=== PATIENT | male | born 1960 | race Caucasian/White ===

== ENCOUNTER 2022-10-01 01:08 | Day surgery (SDC) | payer BC, SELFPAY ==
[2022-09-18 12:48] VITALS: BMI 42.6
[2022-10-01 06:49] VITALS: BP 116/79; PULSE 85; RESP 18; TEMP 36.1; O2SAT 96; BMI 41.3
[2022-10-01] MEDS: LACTATED RINGERS 1,000 ML 150 ML IV CONT (07:04)
[2022-10-01 07:11] LABS: Glucose Point of Care 166 mg/dl (65-105)
--- NOTE | 2022-10-01 07:48 | WPDANESEPPF ---
Anes - Initial Pre Proc Eval Procedure: Operation Date: 10/01/22 08:00 Proposed Procedures p Screening Colonoscopy - Royce Rosario MD Date/Time: 10/01/22 07:48 Surgeon: Royce Rosario MD Pre Op Diagnosis: neoplasm screening; hx of colon polyps Patient Data Age: 62 Gender: M Height: 1.75 m Weight: 126.8 kg Last Vital Signs Temp 36.1 C L 10/01/22 06:49 Pulse 85 10/01/22 06:49 Resp 18 10/01/22 06:49 BP 116/79 10/01/22 06:49 Pulse Ox 96 10/01/22 06:49 O2 Del Method Room Air 10/01/22 06:49 Allergies Allergy/AdvReac Type Severity Reaction Status Date / Time latex Allergy Unknown rash Verified 10/01/22 06:48 Home Medications Medication Instructions Recorded Confirmed Type metformin 500 mg tablet,extended 1,000 mg PO BID #360 tabs 04/18/22 09/18/22 Rx release 24hr dapagliflozin 5 mg tablet (Farxiga) 5 mg PO DAILY #90 tabs 05/15/22 09/18/22 Rx cyanocobalamin (vitamin B-12) 1,000 mcg PO DAILY 06/26/22 09/18/22 History 1,000 mcg tablet semaglutide 14 mg tablet (Rybelsus) 14 mg PO DAILY #90 tabs 08/11/22 09/18/22 Rx amlodipine 5 mg tablet 5 mg PO DAILY #90 tabs 08/15/22 09/18/22 Rx tamsulosin 0.4 mg capsule 0.4 mg PO DAILY #90 caps 08/15/22 09/18/22 Rx valsartan 320 mg tablet 320 mg PO DAILY #90 tabs 08/15/22 09/18/22 Rx cholecalciferol (vitamin D3) 50 2,000 unit PO DAILY 08/20/22 09/18/22 History mcg (2,000 unit) capsule Laboratory Tests 10/01/22 07:05 POC Capillary Glucose 166 mg/dl H mg/dl (65-105) Patient hx anesthesia problems: none Family hx anesthesia problems: none Results Review: All pre-operative results and documents have been reviewed as part of the pre-operative evaluation. [facility] Past Medical History Medical History (Updated 10/01/22 @ 07:48 by Devendra Subramanian MD) Body mass index (BMI) 45.0-49.9, adult (04/19/19) BPH without obstruction/lower urinary tract symptoms Colon polyp (09/20/19) Multiple polyps on colonoscopy with Dr. Larsen on 09/20/2019 with recheck in 3 years. Cough Elevated liver enzymes Encounter for prostate cancer screening PSA 0.57 on 07/05/2021. PSA 0.7 on 08/18/2022. Essential (primary) hypertension Foreign body in right ear Fungal nail infection (~08/20/22) 1st and 5th toes bilaterally Mixed hyperlipidemia total cholesterol 204, triglycerides 418 and HDL 27 on 07/05/2021. Total cholesterol 194, triglycerides 332, HDL 32, LDL 105 on 08/18/2022. Morbid obesity with BMI of 40.0-44.9, adult Obstructive sleep apnea Rib pain on left side Social History Social History Smoking packs per day: 3 Smoking cigarettes per day: 60.0 Years smoked: 20 Smoking pack-years: 60.00 Smoking status: Former smoker Tobacco type: cigarettes Alcohol intake: current Drinks per week: 2 Alcohol use details: occasional Substance use: current Substance use type: marijuana Living arrangements: with family Gender identity (if verbalized by the patient): Male Spiritual care concerns: No Anes - Eval Final PreProcedure Day of Procedure 10/01/22 07:48 Patient weight: morbidly obese Heart: regular rate and rhythm Lungs: clear to auscultation Airway: Mallampati scale class III Neurological: alert and oriented Last oral intake: >/= 8 hours ASA classification: III Emergent: no Anesthetic plan: proceed Anesthesia type and monitoring: general GIVS and standard monitoring Results Review: All pre-operative results and documents have been reviewed as part of the pre-operative evaluation. Informed Consent: The patient's anesthetic plan and its attendant risks and benefits were discussed with the patient/family/POA. Questions were solicited and answers provided to the satisfaction of the patient/family/POA.
--- NOTE | 2022-10-01 07:59 | PM.HPGS ---
History of Present Illness History of Present Illness Consent: Risks, benefits, and alternatives have been discussed and questions answered. Patient agrees to proceed with procedure. Chief complaint: neoplasm screening; hx of colon polyps Narrative: Candelario Pires is a 62 year old male with colon polyps in 2019 Review of Systems Constitutional: Constitutional: Denies headache(s) and Denies weakness Eyes: Eyes: Denies blurry vision ENT: Reports Normal hearing present, Denies headache(s) and Denies neck pain Cardiovascular: Cardiovascular: Denies chest pain and Denies dyspnea Respiratory: Respiratory: Denies dyspnea Gastrointestinal: Gastrointestinal: Reports no additional gastrointestinal complaints Genitourinary: Genitourinary: Denies dysuria Musculoskeletal: Musculoskeletal: Denies neck pain Integumentary/Breasts: Skin/Breast: Denies dry skin Neurologic: Reports Normal hearing present, Denies headache(s) and Denies weakness Psychiatric: Psychiatric: Denies anxiety Endocrine: Endocrine: Denies change in body appearance Hematologic/Lymphatic: Hematologic/Lymphatic: Denies easy bleeding Allergic/Immunologic: Allergic/Immunologic: Denies urticaria PMFSH Past Medical History Medical History (Updated 10/01/22 @ 07:48 by Devendra Subramanian MD) Body mass index (BMI) 45.0-49.9, adult (04/19/19) BPH without obstruction/lower urinary tract symptoms Colon polyp (09/20/19) Multiple polyps on colonoscopy with Dr. Larsen on 09/20/2019 with recheck in 3 years. Cough Elevated liver enzymes Encounter for prostate cancer screening PSA 0.57 on 07/05/2021. PSA 0.7 on 08/18/2022. Essential (primary) hypertension Foreign body in right ear Fungal nail infection (~08/20/22) 1st and 5th toes bilaterally Mixed hyperlipidemia total cholesterol 204, triglycerides 418 and HDL 27 on 07/05/2021. Total cholesterol 194, triglycerides 332, HDL 32, LDL 105 on 08/18/2022. Morbid obesity with BMI of 40.0-44.9, adult Obstructive sleep apnea Rib pain on left side Social History Social History Smoking packs per day: 3 Smoking cigarettes per day: 60.0 Years smoked: 20 Smoking pack-years: 60.00 Smoking status: Former smoker Tobacco type: cigarettes Alcohol intake: current Drinks per week: 2 Alcohol use details: occasional Substance use: current Substance use type: marijuana Living arrangements: with family Gender identity (if verbalized by the patient): Male Spiritual care concerns: No Meds Home Medications and Allergies Home Medications Medication Instructions Recorded Confirmed Type metformin 500 mg tablet,extended 1,000 mg PO BID #360 tabs 04/18/22 09/18/22 Rx release 24hr dapagliflozin 5 mg tablet (Farxiga) 5 mg PO DAILY #90 tabs 05/15/22 09/18/22 Rx cyanocobalamin (vitamin B-12) 1,000 mcg PO DAILY 06/26/22 09/18/22 History 1,000 mcg tablet semaglutide 14 mg tablet (Rybelsus) 14 mg PO DAILY #90 tabs 08/11/22 09/18/22 Rx amlodipine 5 mg tablet 5 mg PO DAILY #90 tabs 08/15/22 09/18/22 Rx tamsulosin 0.4 mg capsule 0.4 mg PO DAILY #90 caps 08/15/22 09/18/22 Rx valsartan 320 mg tablet 320 mg PO DAILY #90 tabs 08/15/22 09/18/22 Rx cholecalciferol (vitamin D3) 50 2,000 unit PO DAILY 08/20/22 09/18/22 History mcg (2,000 unit) capsule Allergies Allergy/AdvReac Type Severity Reaction Status Date / Time latex Allergy Unknown rash Verified 10/01/22 06:48 Vital Signs Vital Signs - 24 hr 10/01/22 06:49 Temperature 97 F L Pulse Rate 85 Respiratory Rate 18 Blood Pressure 116/79 Pulse Oximetry 96 Oxygen Delivery Room Air Exam Const: General: comfortable and no acute distress HENMT: Face/Nose/Sinus: Normal nares present Eyes: General: appearance normal, both eyes and all related structures Neck: Neck: no JVD Resp: Auscultation: clear to auscultation bilaterally Cardio: Rate: regular rate Rhythm: reg
[2022-10-01 08:18] VITALS: BP 108/57; PULSE 78; RESP 16; O2SAT 91
[2022-10-01 08:28] VITALS: BP 104/56; PULSE 87; RESP 20; O2SAT 96
[2022-10-01 08:38] VITALS: BP 106/66; PULSE 78; RESP 20; O2SAT 97
== END 2022-10-01 08:47 | disposition home or self-care (01) ==
PROVIDERS: PCP Family Medicine; Visit Provider Internal Medicine Gastroenterology
PROC: 0DJD8ZZ Inspection of Lower Intestinal Tract, Via Natural or Artificial Opening Endoscopic (ICD-10-PCS; CPT 45378; principal; 2022-10-01 08:00)
DX: Z12.11 Encounter for screening for malignant neoplasm of colon (principal); D12.2 Benign neoplasm of ascending colon; D12.3 Benign neoplasm of transverse colon; K57.30 Diverticulosis of large intestine without perforation or abscess without bleeding; K64.8 Other hemorrhoids; I10 Essential (primary) hypertension; E78.2 Mixed hyperlipidemia; N40.0 Benign prostatic hyperplasia without lower urinary tract symptoms; G47.33 Obstructive sleep apnea (adult) (pediatric); E66.01 Morbid (severe) obesity due to excess calories; Z68.41 Body mass index [BMI] 40.0-44.9, adult; Z79.84 Long term (current) use of oral hypoglycemic drugs; Z87.891 Personal history of nicotine dependence; F12.90 Cannabis use, unspecified, uncomplicated
CPT/HCPCS: 45385; 45380; 82948; 88305; J2704; J7120

== ENCOUNTER 2023-03-08 18:51 | Inpatient (IN) | payer BC, SELFPAY ==
[2023-03-08] VITALS (17 sets, daily range): BP systolic 108–149; BP diastolic 63–97; PULSE 76–89; RESP 13–20; TEMP 36.5; O2SAT 91–99; BMI 43.4
--- NOTE | ~2023-03-08 | XR_ITS ---
EXAMINATION: XR chest 2V DATE: 03/08/2023 19:28 INDICATION: Chest pain TECHNIQUE: PA and lateral views of the chest are obtained. COMPARISON: None available FINDINGS: There is mild limitation of the left hemidiaphragm. There are airspace opacities of the meir g bases. No pleural effusion or pneumothorax. The cardiomediastinal silhouette is normal. There is mo derate thoracic spondylosis. IMPRESSION: 1. Bibasilar airspace opacities, consistent with atelectasis versus pneumonia. Reviewed, dictated and finalized at location F.
--- NOTE | 2023-03-08 18:59 | ECG_ITS ---
Measurements Intervals [place] Heart Rate: 89 P: -62 IA: 164 QRS: 41 QRSD: 74 T: 53 QT: 340 QTc: 414 Interpretive Statements SINUS RHYTHM LOW QRS VOLTAGE IN PRECORDIAL LEADS BASELINE ARTIFACT- I, III, V1, V5 BORDERLINE ECG NO PREVIOUS ECG AVAILABLE FOR COMPARISON Electronically Signed On 03-09-2023 6:34:26 CDT by Gavino Leone D.O.
[2023-03-08 19:07] LABS: Basophils Absolute Auto 0.1 K/mm3 (0.0-0.1); Eosinophils Absolute Auto 0.2 K/mm3 (0-0.3); Eosinophils Percent Auto 2.2 % (0-4.4); Hematocrit 50.4 % (42.0-52.0); Hemoglobin 17.1 g/dL (14.0-18.0); Immature Granulocyte Absolute 0.17 K/mm3 (0.00-0.031); Immature Granulocyte Percent A 1.6 % (0-0.5); Lymphocytes Absolute Auto 1.71 K/mm3 (0.9-3.2); Lymphocytes Percent Auto 16.1 % (18.3-44.2); Mean Corpuscular HGB Conc 33.9 g/dl (32-36); Mean Corpuscular Hemoglobin 31.8 pg (26-34); Mean Corpuscular Volume 93.7 fl (80-100); Mean Platelet Volume 9.6 fl (7.4-10.4); Monocytes Percent Auto 9.7 % (2.6-8.5); Neutrophils Absolute Auto 7.4 K/mm3 (1.3-6.7); Neutrophils Percent Auto 69.4 % (45.5-73.1); Platelet Count Result 239 k/mm3 (150-375); Red Blood Count 5.38 M/mm3 (4.6-6.20); Red Cell Distribution Width 13.2 % (11.5-14.5); White Blood Count 10.6 K/mm3 (4.5-10.0)
[2023-03-08 19:18] LABS: Alanine Aminotransferase 62 U/L (6-50); Albumin Level 4.5 g/dL (3.5-5.1); Alkaline Phosphatase 62 U/L (38-126); Anion Gap 10 mmol/L (8-16); Aspartate Amino Transferase 50 U/L (17-59); Bilirubin,Total 1.1 mg/dL (0.2-1.3); Blood Urea Nitrogen 18 mg/dL (9-20); Calcium 9.7 mg/dL (8.4-10.2); Carbon Dioxide 28 mmol/L (22-30); Chloride 100 mmol/L (98-107); Estimated CRCL calculation 100 ml/min; Estimated Glomerular Filt Rate > 60; Glucose 165 mg/dL (65-110); Lipase 95 U/L (23-300); Sodium 138 mmol/L (137-145)
[2023-03-08 19:19] LABS: INR 0.9; Prothrombin Time 12.5 Seconds (11.1-14.7)
[2023-03-08 19:20] LABS: Partial Thromboplastin Time 31.9 SECONDS (22.3-36.8)
[2023-03-08 19:30] LABS: Troponin I < 0.012 ng/mL (0.000-0.034)
[2023-03-08] MEDS: ASPIRIN 81 MG CHEWABLE TABLET 324 MG PO (19:34)
--- NOTE | 2023-03-08 19:37 | ED.CHESTPAIN ---
HPI - Chest Pain General Chief Complaint: Chest Pain Stated Complaint: chest pain/left arm pain Time Seen by Provider: 03/08/23 19:05 History of Present Illness HPI narrative: Patient is a 62-year-old male with a history of diabetes, hypertension, hyperlipidemia presenting with chest pain. Patient states that for the last several weeks he has had burning substernal chest pain that radiates into his left arm when he exerts himself. States it is associated with lightheadedness and shortness of breath. States that yesterday he was at [employer] and he had to stop and rest after lifting up some plants because the pain was so severe. States that if he is resting the pain completely resolves. States that he had a stress test many years ago. He denies fevers or chills, headache, numbness or weakness, abdominal pain, nausea or vomiting, diarrhea, leg swelling, dysuria Related Data Home Medications Medication Instructions Recorded Confirmed cyanocobalamin (vitamin B-12) 1,000 mcg PO DAILY 06/26/22 03/08/23 1,000 mcg tablet cholecalciferol (vitamin D3) 50 2,000 unit PO DAILY 08/20/22 03/08/23 mcg (2,000 unit) capsule semaglutide 14 mg tablet (Rybelsus) 14 mg PO DAILY 03/08/23 03/08/23 Allergies Allergy/AdvReac Type Severity Reaction Status Date / Time latex Allergy Unknown rash Verified 03/08/23 19:08 Review of Systems Review of Systems: All systems reviewed & are unremarkable except as noted in HPI and below PMFSH Past Medical History Medical History (Updated 03/09/23 @ 00:46 by Ana Oneil MD) Body mass index (BMI) 45.0-49.9, adult (04/19/19) BPH without obstruction/lower urinary tract symptoms Colon polyp (09/20/19) Multiple polyps on colonoscopy with Dr. Larsen on 09/20/2019 with recheck in 3 years. Repeat colonoscopy 10/01/2022 with 2 polyps with recheck in 3 years. Cough DM2 (diabetes mellitus, type 2) Elevated liver enzymes Encounter for prostate cancer screening PSA 0.57 on 07/05/2021. PSA 0.7 on 08/18/2022. Essential (primary) hypertension Foreign body in right ear Fungal nail infection (~08/20/22) 1st and 5th toes bilaterally Mixed hyperlipidemia total cholesterol 204, triglycerides 418 and HDL 27 on 07/05/2021. Total cholesterol 194, triglycerides 332, HDL 32, LDL 105 on 08/18/2022. cholesterol 208, triglycerides 319, HDL 38, LDL 115 on 02/16/2023. Morbid obesity with BMI of 40.0-44.9, adult Obstructive sleep apnea No longer uses a CPAP he has had his tonsillectomy and uvulectomy Rib pain on left side Surgical History Surgical History (Updated 03/08/23 @ 22:27 by Ann Pandey NP) H/O colonoscopy with polypectomy H/O uvulectomy History of tonsillectomy Family History Family History Sibling No problems noted. Sibling COPD (chronic obstructive pulmonary disease) Aneurysm Social History Social History (Updated 03/08/23 @ 22:23 by Ann Pandey NP) Social History: He has 2 sons and lives with . 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 He rarely has a drink of alcohol and is a social drinker. His is the durable power traffic law attorney for healthcare Code status full code Smoking packs per day: 3 Smoking cigarettes per day: 60.0 Years smoked: 20 Smoking pack-years: 60.00 Smoking status: Former smoker Tobacco type: cigarettes Second hand tobacco smoke exposure: Yes Alcohol intake: current Drinks per week: 2 Alcohol use details: occasional Substance use: never Substance use type: marijuana Lack of Transportation: No Lack of Food: Never True Current Housing: I Have Housing Concerned About Future Housing: No Difficulty Paying Gas/Electric Bills: No Difficulty Paying for Meds: No Currently Unemployed: No Education: High School Diploma/GED Difficulty w/ Childcare or Family Care: No Living arrangements: with family Gender identity (if verbalized by the patient):
[2023-03-08 20:23] LABS: NT Pro B Type Natriuretic Pept 22 pg/mL (19.9-100)
--- NOTE | 2023-03-08 21:23 | PC.NURSE ---
Kale, son requesting to be notified when pt get assigned of room, .
--- NOTE | 2023-03-08 21:35 | PM.IMHP ---
H&P: HPI History of Present Illness Date/Time: 03/08/23 21:35 Chief Complaint: Chest pain Narrative: This is a 62-year-old male patient who has a history of hyperlipidemia, obesity, diabetes, and hypertension. The patient stated that he has been having chest pain on and off for the past several weeks. This has been a burning sensation to his substernal chest area and radiates to his left arm. This occurs when he exerts himself. Once the patient sits to rest for few minutes the pain goes away. The patient had no nausea vomiting. No fever chills. No radiation to his back or up his neck. The patient stated that he thinks he may feel short of breath with exertion at times. The patient stated that he was at [employer] yesterday when he was lifting up a plant and had to stop because his pain was so severe. The patient stated he believes he had a stress test about 10 years ago that was negative. He states that occasionally he does have swelling in his lower extremities. His white count is 10.6. His blood sugars 165. His 1st troponin was nonreactive. The patient did have a lipid profile performed on 02/16/2023 with triglycerides being 319, total cholesterol 208, LDLs 115, VLDL 55 and HDL direct 38. The patient stated that his when he was started on atorvastatin. He stated he has only been on it for approximately 1 week. His lipase is negative today. EKG was not noted in the system. EKG per ER interpretation shows normal sinus rhythm normal axis and intervals nonspecific T-wave flattening no ST elevations or depression. The patient was given a full-strength aspirin. He is currently pain-free at rest. Chest x-ray was read as bibasilar airspace opacities consistent with atelectasis versus pneumonia. The patient denies any fever chills or any cough. He is afebrile. The patient is being admitted to observation status on the date of service of 03/08/2023. Review of Systems Review of Systems: All systems reviewed & are unremarkable except as noted in HPI and below Constitutional: Constitutional: Reports as per HPI and Reports no additional constitutional complaints Eyes: Eyes: Reports as per HPI and Reports no additional eye complaints ENT: Reports system reviewed and no additional complaints, except as documented and Reports Normal hearing present Cardiovascular: Cardiovascular: Reports no additional cardiovascular complaints Respiratory: Respiratory: Reports no additional respiratory complaints and Reports no additional respiratory complaints Gastrointestinal: Gastrointestinal: Reports as per HPI and Reports no additional gastrointestinal complaints Musculoskeletal: Musculoskeletal: Reports no additional musculoskeletal complaints Integumentary/Breasts: Skin/Breast: Reports system reviewed and no additional complaints, except as docu and Reports as per HPI Neurologic: Reports system reviewed and no additional complaints, except as documented, Reports as per HPI and Reports Normal hearing present Psychiatric: Psychiatric: Reports no additional psychiatric complaints and Reports as per HPI Endocrine: Endocrine: Reports no additional endocrine complaints Hematologic/Lymphatic: Hematologic/Lymphatic: Reports no additional hematologic/lymphatic complaints Allergic/Immunologic: Allergic/Immunologic: Reports no additional allergic/immunologic complaints [facility] Past Medical History Medical History (Updated 03/08/23 @ 22:27 by Ann Pandey NP) Body mass index (BMI) 45.0-49.9, adult (04/19/19) BPH without obstruction/lower urinary tract symptoms Colon polyp (09/20/19) Multiple polyps on colonoscopy with Dr. Larsen on 09/20/2019 with recheck in 3 years. Repeat colonoscopy 10/01/2022 with 2 polyps with recheck in 3 years. Cough DM2 (diabetes mellitus, type 2) Elevated liver enzymes Encounter for prostate cancer screening PSA 0.57 on 07/05/2021. PSA 0.7 on 08/18/2022. Essential (primary) hypertension Foreign body in right ear
[2023-03-08 22:29] LABS: Troponin I < 0.012 ng/mL (0.000-0.034)
--- NOTE | 2023-03-08 22:49 | PC.NURSE ---
This patient, Candelario Pires, was admitted to IMU Room 206-01. Patient/family oriented to hospital policies and general routines including ID bracelet, bed and alarms, visiting hours, pain management, procedures, bathroom and other care routines, personal items, smoking policy, room service/diet, and visiting hours. Information on how to activate the Rapid Response Team has been discussed. Patient/Family are encouraged to report perceived risks to care and to ask questions if they do not understand what they are told or what they should do.
[2023-03-08 23:33] LABS: Glucose Point of Care 216 mg/dl (65-105)
[2023-03-09] VITALS (36 sets, daily range): BP systolic 105–146; BP diastolic 64–103; PULSE 70–88; RESP 16–20; TEMP 36.1–36.7; O2SAT 88–100
--- NOTE | 2023-03-09 | ECHO_ITS ---
Patient Info Name: Candelario Pires Age: 62 years : 1960 Gender: Male Ht: 68 in Wt: 290 lbs BSA: 2.58 m2 HR: 78 bpm BP: 146 / 68 mmHg Heart Rhythm: Sinus Rhythm Technical Quality: Fair Exam Date: 03/09/2023 7:44 AM Exam Location: [facility] Patient Status: Outpatient Admit Date: 03/08/2023 Staff Ordering Physician: Ann Pandey NP Oss Architect: Viri Bates RDCS Attending Provider: Myra Mccray DO Referring Physician: Dannie PEARL; Exam Type: CA echo dop color flow w con Study Info Indications R60.9 - Edema, unspecified R07.9 - Chest pain, unspecified Complete two-dimensional, color flow and Doppler transthoracic echocardiogram is performed with contrast to opacify the left ventricle and to improve the deliniation of the left ventricle endocardial borders. Contrast/Agitated Saline Contrast/Ag. Saline: Definity Amount: 3.00 ml Administered By: Viri Bates RDCS Existing IV Access: Yes IV Access Condition: patent with no signs of infiltration Summary 1. Left ventricular chamber dimension is normal. 2. Left ventricular systolic function is normal, estimated at 60-65%. 3. There is no increased left ventricular wall thickness. 4. The left ventricular diastolic function is grade II diastolic dysfunction. 5. There is no aortic valve regurgitation. 6. There is no aortic valve stenosis. 7. Unable to estimate PA systolic pressure due to poor spectral resolution of tricuspid regurgitant jet velocity. 8. There is no mitral valve regurgitation. Left Ventricle Left ventricular chamber dimension is normal. Left ventricular systolic function is normal, estimated at 60-65%. There is no increased left ventricular wall thickness. The left ventricular diastolic function is grade II diastolic dysfunction. Right Ventricle Right ventricular chamber dimension is normal. Right ventricular systolic function is normal. Left Atria Left atrial chamber dimension is normal. Right Atria Right atrial chamber dimension is normal. Aortic Valve The aortic valve is probable trileaflet. There is mild aortic valve sclerosis. There is no aortic valve stenosis. There is no aortic valve regurgitation. Pulmonic Valve The pulmonic valve is not well visualized. There is trace pulmonic regurgitation. Mitral Valve The mitral valve has thickened leaflets. There is no mitral valve regurgitation. The mitral valve annulus is moderately calcified. Tricuspid Valve The tricuspid valve leaflets are normal. Unable to estimate PA systolic pressure due to poor spectral resolution of tricuspid regurgitant jet velocity. Pericardium/Pleural The pericardium appears epicardial fat pad. There is small pericardial effusion. Inferior Vena Cava Normal inferior vena cava with >50% collapse upon inspiration consistent with normal right atrial pressure, 5 mmHg. Aorta The aortic root size at the sinus of Valsalva is normal. There is mild-moderate aortic atherosclerosis. Left Ventricular Outflow Tract Name Value Normal LVOT 2D LVOT Diameter 2.04 cm LVOT Doppler LVOT Peak Gradient 4 mmHg LVOT Mean Gradient
[2023-03-09 01:59] LABS: Troponin I < 0.012 ng/mL (0.000-0.034)
[2023-03-09 04:51] LABS: Basophils Absolute Auto 0.1 K/mm3 (0.0-0.1); Basophils Percent Auto 0.9 % (0.2-1.2); Eosinophils Absolute Auto 0.3 K/mm3 (0-0.3); Eosinophils Percent Auto 3.3 % (0-4.4); Hematocrit 50.5 % (42.0-52.0); Hemoglobin 16.9 g/dL (14.0-18.0); Immature Granulocyte Absolute 0.17 K/mm3 (0.00-0.031); Lymphocytes Absolute Auto 1.61 K/mm3 (0.9-3.2); Lymphocytes Percent Auto 18.5 % (18.3-44.2); Mean Corpuscular HGB Conc 33.5 g/dl (32-36); Mean Corpuscular Hemoglobin 31.5 pg (26-34); Mean Platelet Volume 9.9 fl (7.4-10.4); Monocytes Absolute Auto 0.8 K/mm3 (0.1-0.6); Monocytes Percent Auto 8.7 % (2.6-8.5); Neutrophils Absolute Auto 5.8 K/mm3 (1.3-6.7); Neutrophils Percent Auto 66.6 % (45.5-73.1); Platelet Count Result 219 k/mm3 (150-375); Red Blood Count 5.37 M/mm3 (4.6-6.20); Red Cell Distribution Width 12.9 % (11.5-14.5); White Blood Count 8.7 K/mm3 (4.5-10.0)
[2023-03-09 04:58] LABS: Lactic Acid Reflex 1.1 mmol/L (0.7-2.0)
[2023-03-09 05:03] LABS: Alanine Aminotransferase 56 U/L (6-50); Albumin Level 4.2 g/dL (3.5-5.1); Alkaline Phosphatase 63 U/L (38-126); Anion Gap 6 mmol/L (8-16); Aspartate Amino Transferase 46 U/L (17-59); Bilirubin,Total 1.1 mg/dL (0.2-1.3); Blood Urea Nitrogen 15 mg/dL (9-20); Calcium 9.2 mg/dL (8.4-10.2); Carbon Dioxide 32 mmol/L (22-30); Chloride 100 mmol/L (98-107); Estimated CRCL calculation 111 ml/min; Estimated Glomerular Filt Rate > 60; Glucose 149 mg/dL (65-110); Potassium 4.1 mmol/L (3.4-5.0); Sodium 138 mmol/L (137-145)
[2023-03-09 05:07] LABS: Hemoglobin A1C 7.9 % (<5.7)
[2023-03-09] MEDS: PERFLUTREN LIPID MICROSPHERES 1.5 ML VIAL DILUTED TO 10 ML TOTAL VOLUME IV PUSH (08:10)
[2023-03-09] MEDS: CHOLECALCIFEROL 1,000 UNITS TABLET 2000 UNITS PO (08:48)
[2023-03-09] MEDS: VALSARTAN 160 MG TABLET 320 MG PO (08:48)
[2023-03-09] MEDS: CYANOCOBALAMIN 1,000 MCG TABLET 1000 MCG PO (08:48)
[2023-03-09] MEDS: amLODIPine BESYLATE 5 MG TABLET PO (08:48)
--- NOTE | 2023-03-09 10:07 | PHAR ---
HOME: RYBELSUS (SEMEGLUTIDE) 14 MG; ONCE DAILY. VERIFIED BY PHARMACY.
--- NOTE | 2023-03-09 10:59 | IVDEFINITY ---
Prior to administration of IV Definity the patient was educated on the risks and benefits of the imaging enhancing agent including potential adverse side effects. The patient verbalized understanding. Allergies were verified. No exclusion criteria were identified and at least one of the following inclusion criteria were met: 1) physician request, 2) patient technically difficult to image (per the [place] [employer] guidelines of two or more segments not discernable within the apical view), or 3) questionable left ventricular function. ?
--- NOTE | 2023-03-09 11:30 | PM.CNCAR ---
Assessment and Plan Assessment and plan (1) Chest pain: Code(s): R07.9 - Chest pain, unspecified Status: Acute Plan This is a 62-year-old man with diabetes hypertension morbid obesity and previous cigarette smoking. He presents with about a 1 week history of exertional chest pain very typical of angina. Because of his risk factors and typical symptomatology I believe we should proceed with angiography. This was explained to the patient and his family including the risks and alternatives of noninvasive stress testing. They are agreeable to proceed. Tigre Patel MD [facility] History of Present Illness History of Present Illness Consult date/time: 03/09/23 11:30 Reason For Visit: exertional chest pain Narrative: This is a 62 year I am seeing at the request of the hospitalist because of exertional chest pain. The patient is unknown to me prior to this encounter. He apparently is not known to have any cardiac problems before this and describes about a 1 week history of exertional chest pain describing this as a substernal burning like sensation without radiation. There is no associated shortness of breath nausea vomiting or diaphoresis. The pain does tend to radiate into the left upper extremity. Because of symptoms that were worse after exert and self yesterday he came to the emergency room where he was evaluated and admitted. His electrocardiogram looks unremarkable he has had 3 troponin levels done that are also normal. The patient is being seen in room 206 bed 1 where he is comfortable at bed rest. He has a history of longstanding hypertension and diabetes he says he does not believe that he has dyslipidemia he used to smoke heavily but quit more than 20 years ago. He does have a history of coronary disease in 2 uncles who at the age of 57 and 60 of myocardial infarctions. 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 Review of Systems Constitutional: Constitutional: Reports no additional constitutional complaints Eyes: Eyes: Reports no additional eye complaints ENT: Reports system reviewed and no additional complaints, except as documented Cardiovascular: Cardiovascular: Reports as per HPI Respiratory: Respiratory: Reports no additional respiratory complaints Gastrointestinal: Gastrointestinal: Reports no additional gastrointestinal complaints Musculoskeletal: Musculoskeletal: Reports no additional musculoskeletal complaints Integumentary/Breasts: Skin/Breast: Reports system reviewed and no additional complaints, except as docu Neurologic: Reports system reviewed and no additional complaints, except as documented Endocrine: Endocrine: Reports no additional endocrine complaints Hematologic/Lymphatic: Hematologic/Lymphatic: Reports no additional hematologic/lymphatic complaints Allergic/Immunologic: Allergic/Immunologic: Reports no additional allergic/immunologic complaints [facility] Past Medical History Medical History (Updated 03/09/23 @ 00:46 by Ana Oneil MD) Body mass index (BMI) 45.0-49.9, adult (04/19/19) BPH without obstruction/lower urinary tract symptoms Colon polyp (09/20/19) Multiple polyps on colonoscopy with Dr. Larsen on 09/20/2019 with recheck in 3 years. Repeat colonoscopy 10/01/2022 with 2 polyps with recheck in 3 years. Cough DM2 (diabetes mellitus, type 2) Elevated liver enzymes Encounter for prostate cancer screening PSA 0.57 on 07/05/2021. PSA 0.7 on 08/18/2022. Essential (primary) hypertension Foreign body in right ear Fungal nail infection (~08/20/22) 1st and 5th toes bilaterally Mixed hyperlipidemia total cholesterol 204, triglycerides 418 and HDL 27 on 07/05/2021. Total cholesterol 194, triglycerides 332, HDL 32, LDL 105 on 08/18/2022. cholesterol 208, triglycerides 319, HDL 38, LDL 115 on 02/16/2023. Morbid obesity with BMI of 40.0-44.9, adult Obstructive sleep apnea No longer uses a CPAP he has had his tonsillectomy and uvulec
--- NOTE | 2023-03-09 11:43 | WPDMODSED ---
Moderate Sedation Note-Pt Data Patient Data Diagnosis: Exertional chest pain Present Complaint: chest pain with exertion Procedure to be performed/Plan: left heart catheterization Allergies Allergy/AdvReac Type Severity Reaction Status Date / Time latex Allergy Unknown rash Verified 03/08/23 19:08 Home Medications Medication Instructions Recorded Confirmed Type metformin 500 mg tablet,extended 1,000 mg PO BID #360 tabs 04/18/22 03/08/23 Rx release 24hr cyanocobalamin (vitamin B-12) 1,000 mcg PO DAILY 06/26/22 03/08/23 History 1,000 mcg tablet amlodipine 5 mg tablet 5 mg PO DAILY #90 tabs 08/15/22 03/08/23 Rx tamsulosin 0.4 mg capsule 0.4 mg PO DAILY #90 caps 08/15/22 03/08/23 Rx valsartan 320 mg tablet 320 mg PO DAILY #90 tabs 08/15/22 03/08/23 Rx cholecalciferol (vitamin D3) 50 2,000 unit PO DAILY 08/20/22 03/08/23 History mcg (2,000 unit) capsule atorvastatin 20 mg tablet 20 mg PO QHS #90 tabs 02/18/23 03/08/23 Rx dapagliflozin 10 mg tablet 10 mg PO QAM #90 tabs 02/18/23 03/08/23 Rx (Farxiga) semaglutide 14 mg tablet (Rybelsus) 14 mg PO DAILY 03/08/23 03/08/23 History Current Medications: Active Medications Amlodipine Besylate (Amlodipine Besylate 5 Mg Tablet) 5 mg PO DAILY [facility] Last Admin: 03/09/23 08:48 Dose: 5 mg Atorvastatin Calcium (Atorvastatin 20 Mg Tablet) 20 mg PO QHS [facility] Last Admin: 03/09/23 02:43 Dose: Not Given Cyanocobalamin (Cyanocobalamin 1,000 Mcg Tablet) 1,000 mcg PO DAILY [facility] Last Admin: 03/09/23 08:48 Dose: 1,000 mcg Dextrose (Dextrose 50% 25 Gm/50 Ml Syringe) 12.5 gm IV PUSH PRN PRN; Protocol PRN Reason: Hypoglycemia Enoxaparin Sodium (Enoxaparin 40 Mg/0.4 Ml Syringe) 40 mg SUB-Q DAILY [facility] Glucagon (Glucagon For Inj 1 Mg Vial) 1 mg IM PRN PRN; Protocol PRN Reason: Hypoglycemia Glucose (Glucose Oral Gel 15 Gm Of Glucse In 37.5 Gm Tube) 15 gm PO PRN PRN; Protocol PRN Reason: Hypoglycemia Hydralazine HCl (Hydralazine Hcl 20 Mg/Ml Vial) 10 mg IV PUSH Q8H PRN PRN Reason: Blood Pressure - High Dextrose (Dextrose 5% 1,000 Ml) 1,000 mls @ 100 mls/hr IVPB PRN PRN; Protocol PRN Reason: Hypoglycemia Insulin Aspart (Insulin Aspart (*Bkc) 100 Units/Ml) 2 - 5 units SUB-Q Q6HR [facility]; Protocol Last Admin: 03/09/23 06:00 Dose: Not Given Home Med ( Semaglutide [ Rybelsus] 14 Mg Tablet) 14 mg PO DAILY [facility] Stop: 04/08/23 09:59 Perflutren Lipid Microsphere (Perflutren Lipid Microspheres 1.5 Ml Vial Diluted To 10 Ml Total Volume) 0 ml IV PUSH ONCE PRN; Protocol PRN Reason: adequate visualization Stop: 03/10/23 22:17 Tamsulosin HCl (Tamsulosin Hcl 0.4 Mg Capsule) 0.4 mg PO HS [facility] Last Admin: 03/09/23 02:43 Dose: Not Given Valsartan (Valsartan 160 Mg Tablet) 320 mg PO QAM [facility] Last Admin: 03/09/23 08:48 Dose: 320 mg Vitamin D (Cholecalciferol 1,000 Units Tablet) 2,000 units PO DAILY [facility] Last Admin: 03/09/23 08:48 Dose: 2,000 units Sedation/Anesthesia: No previous sedation/anesthesia problems (including family history). [facility] Past Medical History Medical History (Updated 03/09/23 @ 00:46 by Ana Oneil MD) Body mass index (BMI) 45.0-49.9, adult (04/19/19) BPH without obstruction/lower urinary tract symptoms Colon polyp (09/20/19) Multiple polyps on colonoscopy with Dr. Larsen on 09/20/2019 with recheck in 3 years. Repeat colonoscopy 10/01/2022 with 2 polyps with recheck in 3 years. Cough DM2 (diabetes mellitus, type 2) Elevated liver enzymes Encounter for prostate cancer screening PSA 0.57 on 07/05/2021. PSA 0.7 on 08/18/2022. Essential (primary) hypertension Foreign body in right ear Fungal nail infection (~08/20/22) 1st and 5th toes bilaterally Mixed hyperlipidemia total cholesterol 204, triglycerides 418 and HDL 27 on 07/05/2021. Total cholesterol 194, triglycerides 332, HDL 32, LDL 105 on 08/18/2022. cholesterol 208, triglycerides 319, HDL 38, LDL 115 on 02/16/2023. Morbid obesity with BMI of 40.0-44.9, adult Obstructive sle
--- NOTE | 2023-03-09 12:12 | PC.NURSE ---
Pt to labor law professor via bed. Family at bedside
--- NOTE | 2023-03-09 13:24 | ECG_ITS ---
Measurements Intervals [place] Rate: 73 P: 31 CT: 171 QRS: 54 QRSD: 90 T: 32 QT: 397 QTc: 438 Interpretive Statements SINUS RHYTHM LOW QRS VOLTAGE IN PRECORDIAL LEADS BORDERLINE ECG COMPARED TO ECG 03/08/2023 18:55:51 NO SIGNIFICANT CHANGES Electronically Signed On 03-09-2023 13:49:22 CDT by Gavino Leone D.O.
[2023-03-09 13:26] LABS: Glucose Point of Care 136 mg/dl (65-105)
--- NOTE | 2023-03-09 13:28 | WPDCARDPROC ---
Cardiac Cath Procedure Note Date of procedure:: 03/09/23 Performing physician:: Tigre Patel MD Indication:: exertional angina Brief clinical history:: this is a 62-year-old patient with a history of diabetes hypertension dyslipidemia and morbid obesity who presents with typical exertional angina of recent onset. Procedure Procedure performed:: Left ventriculogram coronary angiogram PCI(ÁNGEL) to RCA Sedation/Medication given:: fentanyl 100 mg Versed 4 mg case start time 12:30 p.m. case end time 1:18 p.m. sedation provided by Brisa Collins RN, trained observer Access site:: right femoral artery Estimated blood loss:: 50 cc Procedure note:: patient was brought to the cardiac catheterization lab in the postabsorptive state where the right femoral triangle was prepared and draped in the usual fashion. Anesthesia was provided with 1% lidocaine infiltrated locally. Using the modified Seldinger technique the right femoral artery was punctured a 5 Romanian vascular sheath was placed. After this a 5 Romanian angled pigtail catheter used to measure left-sided hemodynamics and a left ventricular ejection in the 30 degree OBRIEN projection. Following this 5 Romanian FL catheter was used to engage and inject the left coronary artery in multiple projections. A 5 Romanian JR4 catheter was to engage inject the right coronary artery. Following this the cineangiograms were reviewed and PCI was recommended of the right coronary artery carried out as detailed below. Prior to PCI the 5 Romanian sheath was exchanged out for a 6 Romanian sheath. The patient received aspirin and 600 mg of clopidogrel. He was anticoagulated with bolus and infusion of Angiomax for this PCI. Following PCI the patient was reporting approximately 5 to 6/10 ischemic chest pain he did receive sublingual nitroglycerin as well as 20 mg of amlodipine in the slab conditioner supervisor as he was significantly hypertensive at the conclusion of the procedure. The sheath was sutured into position the patient was taken to the holding area for post PCI is recovery. Findings:: Hemodynamics: The central aortic pressure is 146 over 70 left ventricle 146/5 end-diastolic pressure 22 there is no gradient on pullback across the aortic valve. Left ventricle: LV is normal in size all segments contract appropriately the global ejection fraction I would visually 50%. No regional wall motion abnormalities were seen. The left main coronary artery is medium in caliber and free of significant stenosis. The left anterior descending is a medium caliber vessel smaller than expected in this large man. There is met mild luminal irregularity in the LAD but no significant lesions are seen. There appears to be 100% occlusion of a high septal branch of the LAD. A stump of this branch can be seen proximally off the LAD. The circumflex is a medium caliber vessel giving rise to 2 marginal branches the circumflex system has minimal luminal irregularities but no significant lesions are seen. The right coronary artery is medium caliber vessel it is dominant to the posterior circulation. There is a high-grade 95-99% stenosis in the right coronary artery in the 2nd portion of the vessel however is immediately prior to the PDA/ PL bifurcation as the bifurcation occurs early in this patient. The PDA and PL branches themselves appear to be free of significant disease. Intervention: The right coronary artery was engaged using a 6 Romanian JR4 guiding catheter. I used two .014 BMW coronary guidewires to be placed across the stenosis the 1st 1 into the RPDA and the 2nd 1 into the RPL as they were both large vessels. I then performed intervention using the RPDA wire. The lesion was pre-dilated carefully using a 2.5 x 15 mm balloon across the high-grade stenosis. Following this the vessel was nicely patent with minimal residual stenosis. I then stented the target lesion using a 3 x 15 mm [facility] drug-elutin
[2023-03-09 13:41] LABS: Cholesterol 120 mg/dL (0-200); HDL Direct 25 mg/dL; Triglycerides 206 mg/dL (<150)
[2023-03-09 13:51] LABS: LDL Cholesterol Direct 61 mg/dL
[2023-03-09] MEDS: SODIUM CHLORIDE 0.9% IV 1,000 ML 125 ML IV CONT (15:00)
[2023-03-09] MEDS: MORPHINE SULFATE (*CRX) 2 MG/ML INJ IV PUSH ×2 (15:00→16:35)
--- NOTE | 2023-03-09 15:35 | PCCCNOTE ---
On 03/09/23, the student, [Giuliana Walters], provided care and completed [facility] documentation on this patient. I have reviewed the student's documentation and agree with the findings.
--- NOTE | 2023-03-09 16:58 | PM.IMPN ---
Progress Note: A&P Assessment and Plan (1) Chest pain: Code(s): R07.9 - Chest pain, unspecified Status: Acute Assessment and Plan: The patient has been having exertional chest pain on and off for 3 weeks. Troponin negative x3. EKG showing NSR and no acute ST-T wave changes. Echo showing EF 60-65% with Grade II diastolic dysfunction. Cardiology was consulted. The patient has multiple risk factors such as diabetes, HTN, obesity and HLD. CXR with bibasilar airspace opacities. No complaints of cough, fever or chills. WBC 110.6 and normal on repeat. Suspect CXR fiindings related to atelectasis. Patient taken for LHC and found to have 95-99% stenosis in the RCA immediately prior to the proximal PDA PL bifurcation.?A ÁNGEL was placed. He also had 100% occlusion of a small LAD branch likely a small proximal septal branch which appears to be chronic.? Mild plaquing is seen in the LAD otherwise. Continue Lipitor, ASA, Plavix and Metoprolol. (2) CAD (coronary artery disease): Code(s): I25.10 - Atherosclerotic heart disease of [place] coronary artery without angina pectoris Status: Acute Assessment and Plan: As above (3) Essential (primary) hypertension: Code(s): I10 - Essential (primary) hypertension Status: Acute Assessment and Plan: Patient's blood pressure was reviewed on 03/09 Blood pressure remains well controlled. Will continue current medications. (4) Mixed hyperlipidemia: Code(s): E78.2 - Mixed hyperlipidemia Status: Acute Assessment and Plan: The patient was recently started on atorvastatin. Patient encouraged to lead a healthy lifestyle. (5) DM2 (diabetes mellitus, type 2): Code(s): E11.9 - Type 2 diabetes mellitus without complications Status: Acute Assessment and Plan: A1c 7.9. The patient's blood glucose was reviewed on 03/09 Glucose remains well controlled. Continue AccuCheks covering with sliding scale. Hypoglycemia protocol available as needed. Continue to monitor. (6) BPH without obstruction/lower urinary tract symptoms: Code(s): N40.0 - Benign prostatic hyperplasia without lower urinary tract symptoms Status: Acute Assessment and Plan: No complaints. Continue with tamsulosin Subjective Date/time seen: 03/09/23 16:58 Interval history: 62yo male with DM, HTN and HLD here for chest pain. he is back from his procedure. He feels well. Asking for a shower. Had CP after the procedure resolved with Morphine. Exam Narrative: AF 96.9 118/81 74 18 96% 3L Gen - NARD Chest - CTA bilaterally, nml RR CV - RRR S1/S2. Tele showing no acute findings. Abd - Soft, NT/ND, Positive BS Ext - No pedal edema Neuro - Alert and oriented. Nonfocal exam. Psych - Nml mood and affect Skin - Warm and dry Objective Data Vital Signs Vital Signs: Vital Signs - 24 hr 03/08/23 19:06 03/08/23 19:09 03/08/23 19:06 Temperature Pulse Rate 89 86 87 Respiratory Rate 18 19 Blood Pressure 124/64 Pulse Oximetry 93 92 Oxygen Delivery Room Air Oxygen Flow Rate 03/08/23 19:07 03/08/23 19:17 03/08/23 19:55 Temperature Pulse Rate 86 84 Respiratory Rate 19 18 Blood Pressure 124/64 108/63 Pulse Oximetry 92 94 94 Oxygen Delivery Room Air Oxygen Flow Rate 03/08/23 19:29 03/08/23 19:32 03/08/23 19:47 Temperature Pulse Rate 84 86 83 Respiratory Rate 18 17 16 Blood Pressure 139/74 121/71 129/73 Pulse Oximetry 93 93 93 Oxygen Delivery Oxygen Flow Rate 03/08/23 20:02 03/08/23 20:17 03/08/23 20:32 Temperature Pulse Rate 83 84 81 Respiratory Rate 19 19 13 Blood Pressure 118/72 136/78 115/97 H Pulse Oximetry 92 94 93 Oxygen Delivery Oxygen Flow Rate 03/08/23 20:33 03/08/23 21:15 03/08/23 21:30 Temperature Pulse Rate 81 77 77 Respiratory Rate 19 13 17 Blood Pressure Pulse Oximetry 91 93 93 Oxygen Delivery Oxygen Flow R
--- NOTE | 2023-03-09 17:41 | PC.NURSE ---
Pt returned from laborer wharf via bed. No issues noted
[2023-03-09] MEDS: METOPROLOL TARTRATE 25 MG TABLET PO (17:46)
[2023-03-09 17:53] LABS: Glucose Point of Care 123 mg/dl (65-105)
--- NOTE | 2023-03-09 18:24 | SUR.PHASEII ---
bedside report given to Lina BUSH IMU room 206-1.
[2023-03-09 20:03] LABS: Glucose Point of Care 187 mg/dl (65-105)
[2023-03-09] MEDS: TAMSULOSIN HCL 0.4 MG CAPSULE PO (20:45)
[2023-03-10] VITALS (13 sets, daily range): BP systolic 116–130; BP diastolic 61–79; PULSE 55–87; RESP 18–20; TEMP 36.3–36.6; O2SAT 94–97
[2023-03-10] MEDS: METOPROLOL TARTRATE 25 MG TABLET PO ×2 (00:37→05:50)
[2023-03-10] MEDS: CLOPIDOGREL BISULFATE 75 MG TABLET PO (08:23)
[2023-03-10] MEDS: ATORVASTATIN 40 MG TABLET 80 MG PO (08:23)
[2023-03-10] MEDS: ASPIRIN 81 MG CHEWABLE TABLET PO (08:23)
[2023-03-10 08:27] LABS: Glucose Point of Care 160 mg/dl (65-105)
--- NOTE | 2023-03-10 10:27 | PM.PNCARD ---
Progress Note: A&P Assessment and Plan (1) CAD (coronary artery disease): Code(s): I25.10 - Atherosclerotic heart disease of [place] coronary artery without angina pectoris Status: Acute Assessment and Plan: New diagnosis of coronary artery disease found to have 95-99% stenosis in the RCA immediately prior to the proximal PDA PL bifurcation. This lesion was successfully treated using the 3 x 15 mm drug-eluting stent detailed above with a good angiographic result. He also has 100% occlusion of a small LAD branch likely a small proximal septal branch which appears to be chronic. Mild plaquing is seen in the LAD otherwise. He has preserved LV systolic function. Continue DAPT with ASA, Plavix without interruption for one year Continue high intensity statin Continue aggressive risk factor modification BP control Referral for cardiopulmonary rehab Will shift metoprolol to succinate for dosing convenience Outpatient follow up in our office (2) Chest pain: Code(s): R07.9 - Chest pain, unspecified Status: Acute Assessment and Plan: Secondary to above. Resolved. Subjective Date/time seen: 03/10/23 10:27 Cardiology follow up for CAD Interval history: Feeling well this morning s/p PCI to the RCA with one stent yesterday. Denies any chest pain, shortness of breath, palpitations. No ectopy on telemetry. He is very eager to be discharged. Review of Systems Constitutional: Constitutional: Reports no additional constitutional complaints Eyes: Eyes: Reports no additional eye complaints ENT: Reports system reviewed and no additional complaints, except as documented Cardiovascular: Cardiovascular: Reports as per HPI Respiratory: Respiratory: Reports no additional respiratory complaints Gastrointestinal: Gastrointestinal: Reports no additional gastrointestinal complaints Musculoskeletal: Musculoskeletal: Reports no additional musculoskeletal complaints Integumentary/Breasts: Skin/Breast: Reports system reviewed and no additional complaints, except as docu Neurologic: Reports system reviewed and no additional complaints, except as documented Endocrine: Endocrine: Reports no additional endocrine complaints Hematologic/Lymphatic: Hematologic/Lymphatic: Reports no additional hematologic/lymphatic complaints Allergic/Immunologic: Allergic/Immunologic: Reports no additional allergic/immunologic complaints Exam Const: General: comfortable and no acute distress Other: Morbidly obese white male sitting at the bedside playing cards with visitors. HENMT: Mouth: Yes moist mucous membranes Eyes: Sclera: sclerae normal Neck: Neck: supple Resp: Effort & Inspection: normal respiratory effort Auscultation: clear to auscultation bilaterally and diminished lung sounds Cardio: Rate: regular rate Rhythm: regular rhythm Heart sounds: S1 normal heart sound present, S2 normal heart sound present and no murmurs GI: Auscultation: normal bowel sounds Skin: General skin exam: normal color Other: R groin arterial access site free from bleeding, hematoma, swelling, pain. Neuro: Other: Alert and oriented x3, normal cognition Extrem: General: normal to inspection Objective Data Vital Signs Vital Signs: Vital Signs - 24 hr 03/09/23 12:00 03/09/23 13:36 03/09/23 14:00 Temperature Pulse Rate 83 77 73 Respiratory Rate 16 19 Blood Pressure 110/65 120/71 Pulse Oximetry 88 L 95 Oxygen Delivery Room Air Nasal Cannula Oxygen Flow Rate 3 03/09/23 13:45 03/09/23 14:30 03/09/23 15:33 Temperature Pulse Rate 73 73 74 Respiratory Rate 19 19 16 Blood Pressure 127/77 122/103 H 143/83 H Pulse Oximetry 95 96 97 Oxygen Delivery Nasal Cannula Nasal Cannula Nasal Cannula Oxygen Flow Rate 3 3 3 03/09/23 14:45 03/09/23 15:00 03/09/23 16:00 Temperature Pulse Rate 71 74 73 Respiratory Rate 19 16 16 Blood Pressure 142/81 H 140/81 146/87 H Pulse Oximetry 97 97
--- NOTE | 2023-03-10 13:12 | PM.DS ---
DS: Admitting Diagnosis Discharge Date 03/10/23 Admitting Diagnosis Chest pain DS: Discharge Diagnosis Discharge Diagnosis (1) Chest pain: Code(s): R07.9 - Chest pain, unspecified Status: Acute (2) CAD (coronary artery disease): Code(s): I25.10 - Atherosclerotic heart disease of [place] coronary artery without angina pectoris Status: Acute (3) Essential (primary) hypertension: Code(s): I10 - Essential (primary) hypertension Status: Acute (4) Mixed hyperlipidemia: Code(s): E78.2 - Mixed hyperlipidemia Status: Acute (5) DM2 (diabetes mellitus, type 2): Code(s): E11.9 - Type 2 diabetes mellitus without complications Status: Acute (6) BPH without obstruction/lower urinary tract symptoms: Code(s): N40.0 - Benign prostatic hyperplasia without lower urinary tract symptoms Status: Acute DS: Summary Hospital Course Hospital Course: The patient has been having exertional chest pain on and off for 3 weeks. Troponin was negative x3. EKG showing NSR and no acute ST-T wave changes. Echo showing EF 60-65% with Grade II diastolic dysfunction. Cardiology was consulted. The patient has multiple risk factors such as diabetes, HTN, obesity and HLD. CXR with bibasilar airspace opacities. No complaints of cough, fever or chills. WBC 10.6 and normal on repeat. Suspect CXR findings related to atelectasis. Patient was taken for LHC and found to have 95-99% stenosis in the RCA immediately prior to the proximal PDA PL bifurcation.?A ÁNGEL was placed. He also had 100% occlusion of a small LAD branch likely a small proximal septal branch which appears to be chronic.? Mild plaquing is seen in the LAD otherwise. He was started on appropriate medical management. Patient was encouraged to lead a healthy lifestyle. He overall did well and was able to be discharged home on 03/10/23 Status at Discharge Cognitive/behavioral status at discharge: stable Time Spent with Patient Time attestation: Total time spent providing and/or coordinating discharge services: 34 minutes Time spent: Greater than 30 minutes Exam Narrative: AF 97.4 116/79 73 18 94% RA Gen - NARD Chest - CTA bilaterally, nml RR CV - RRR S1/S2 Abd - Soft, obese, NT/ND, Positive BS Ext - No pedal edema. Right groin site clean and dry Psych - Nml mood and affect Skin - Warm and dry DS: Data Data Completed and Pending Labs on day of discharge: Labs from last 24 hours 03/10/23 03/09/23 03/09/23 07:52 19:48 17:48 POC Capillary Glucose 160 H 187 H 123 H Triglycerides Cholesterol LDL Cholesterol Direct HDL Direct 03/09/23 03/09/23 11:50 04:15 POC Capillary Glucose 136 H Triglycerides 206 H Cholesterol 120 LDL Cholesterol Direct 61 HDL Direct 25 Discharge Plan Discharge Attending physician on discharge: Juanpablo Hermosillo Consulting providers: Allison Ching Discharging Clinician: Juanpablo Hermosillo Anticipated Discharge Date/Time: 03/10/23 13:17 Patient Disposition: Home, Self-Care Activity: other - see discharge instructions Diet: heart healthy Wound Care Instructions: other - see discharge instructions Discharge Instructions: [facility] [address] [facility] [address] [place], [place] [id number] DISCHARGE INSTRUCTIONS - POST PCI Activity 1. No driving until 03/12/2023. 2. No lifting, pushing or pulling more than 10 pounds for 1 week. 3. No s
== END 2023-03-10 13:40 | disposition home or self-care (01) | DRG 247 ==
LOC: ANHED 19:17 → ANHIMU 22:19 → ANH3MEDSUR 03-09 12:42 → ANHIMU 03-09 12:47
PROVIDERS: Nurse Practitioner; Specialist; Admitting Provider Internal Medicine; Emergency Provider Emergency Medicine; PCP Family Medicine; Visit Provider Internal Medicine
PROC: 4A023N7 Measurement of Cardiac Sampling and Pressure, Left Heart, Percutaneous Approach (ICD-10-PCS; CPT 93452; principal; 2023-03-09 12:00)
PROC: 027034Z Dilation of Coronary Artery, One Artery with Drug-eluting Intraluminal Device, Percutaneous Approach (ICD-10-PCS; 2023-03-09 12:00)
DX: I25.118 Atherosclerotic heart disease of native coronary artery with other forms of angina pectoris (principal); Z68.41 Body mass index [BMI] 40.0-44.9, adult; I25.82 Chronic total occlusion of coronary artery; E78.2 Mixed hyperlipidemia; I10 Essential (primary) hypertension; E11.9 Type 2 diabetes mellitus without complications; N40.0 Benign prostatic hyperplasia without lower urinary tract symptoms; G47.33 Obstructive sleep apnea (adult) (pediatric); E66.01 Morbid (severe) obesity due to excess calories; Z87.891 Personal history of nicotine dependence; Z79.84 Long term (current) use of oral hypoglycemic drugs
CPT/HCPCS: 36415; 71046; 80053; 80061; 82948; 83036; 83605; 83690; 83735; 83880; 84443; 84484; 85025; 85610; 85730; 93005; 93458; 96374; 99285; A9270; C1725; C1769; C1874; C1887; C1894; C8929; C9600; G0378; J0583; J1644; J2250; J2270; J3010; J7030; J7040; Q9957

== ENCOUNTER 2023-10-07 07:35 | Outpatient (CLI) | payer BC, SELFPAY ==
--- NOTE | ~2023-10-07 | US_ITS ---
US art doppler w press LE BI INDICATION: Peripheral arterial disease. Claudication. Thickened toenails. TECHNIQUE: Segmental pressures and plethysmographic and Doppler waveforms of the brachial and lower e xtremity arteries were obtained. COMPARISON: None. FINDINGS: Right and left brachial artery pressures of 139 mm Hg and 145 mm Hg, respectively, are concordant (no rmal difference <= 30 mmHg). The right ankle-brachial index (ORACIO) is 1.12 (normal >= 0.9-1.0). The right great toe-brachial index (TBI) is 0.41 (normal >= 0.60). The left ORACIO is 1.08. The left TBI is 0.08. IMPRESSION: 1. Diminished bilateral toe brachial indices consistent with peripheral arterial disease. Reviewed, dictated and finalized at location [employer] IMPRESSION: 1. Diminished bilateral toe brachial indices consistent with peripheral arteria l disease.
== END 2023-10-07 07:36 | disposition home or self-care (01) ==
PROVIDERS: PCP Family Medicine; Visit Provider Family Medicine
DX: R09.89 Other specified symptoms and signs involving the circulatory and respiratory systems (principal); I73.9 Peripheral vascular disease, unspecified
CPT/HCPCS: 93923

== ENCOUNTER 2024-12-07 09:13 | Outpatient (CLI) | payer BC, SELFPAY ==
--- OUTSIDE RECORDS SUMMARY | 2024-12-07 09:52 | XMS_ITS | Referral Summary ---
Author Organization [facility] [place] [address] Address [address] [place] [address] Care Team Providers Care Coffee Farmer Name Role Phone Rajiv Burgess MD Primary Care Provider [phone] Allergies Active Allergy Reactions Criticality Noted Date Comments Latex Itching,Rash Medium 04/01/2023 Medications aspirin 81 mg chewable tablet CHEW AND SWALLOW 1 TABLET BY MOUTH DAILY AT 8 AM 03/10/2023 Active clopidogreL (PLAVIX) 75 mg tablet Take 1 tablet (75 mg total) by mouth daily 03/10/2023 Active metoprolol tartrate (LOPRESSOR) 50 mg immediate release tablet Take 1 tablet (50 mg total) by mouth every 12 (twelve) hours 03/10/2023 Active metFORMIN XR (GLUCOPHAGE XR) 500 mg 24 hr tablet Take 2 tablets (1,000 mg total) by mouth 2 (two) times a day 02/08/2023 Active valsartan (DIOVAN) 320 mg tablet Take 1 tablet (320 mg total) by mouth daily 02/08/2023 Active tamsulosin (FLOMAX) 0.4 mg extended release capsule Take 1 capsule (0.4 mg total) by mouth daily 02/08/2023 Active Farxiga 10 mg tablet TAKE 1 TABLET BY MOUTH EVERY MORNING. MAY TAKE 2 OF THE 5 MG TABLETS EVERY DAY UNTIL ALL TAKEN 02/19/2023 Active semaglutide (RYBELSUS) 14 mg tablet Take 1 tablet (14 mg total) by mouth daily Active cyanocobalamin (Vitamin B-12) 1,000 mcg tabletIndicatio ns:Prevention of Vitamin B12 Deficiency Take 1 tablet (1,000 mcg total) by mouth daily Active cholecalciferol (VITAMIN D-3) 2000 unit capsule 1 capsule (2,000 Units total) Active amLODIPine (NORVASC) 5 mg tabletIndicatio ns:Coronary artery disease involving [place] coronary artery of [place] heart without angina pectoris TAKE 2 TABLETS(10 MG) BY MOUTH DAILY 180 tablet 03/18/2024 Active atorvastatin (LIPITOR) 80 mg tablet TAKE 1 TABLET(80 MG) BY MOUTH DAILY 90 tablet 2 09/19/2024 Active Active Problems Problem Noted Date Diagnosed Date History of coronary angioplasty with insertion o f stent 05/28/2023 Morbid (severe) obesity due to excess calories 0 04/01/2023 Body mass index 40.0-44.9, adult ([facility]) 04/01 Social History Tobacco Use Types Packs/Day Years Used Date Smoking Tobacco: Former Cigarettes 3 25 1 973 - 1997 Smokeless Tobacco: Never Tobacco Cessation:Counseling Given: Not Answered AUDIT-C Answer Date Recorded Q1: How often do you have a drink containing alcohol? 4 or more times a week 04/01/2023 Q2: How many drinks containi ng alcohol do you have on a typical day when you are drinking? 3 or 4 Q3: How often do you have si x or more drinks on one occasion? 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 Gender Identity Not on file Sexual Orientation Not on file Last Filed Vital Signs Vital Sign Reading Time Taken Comments Blood Pressure 112/64 05/31/2024 3:36 PM CDT Pulse 78 05/31/2024 3:36 PM CDT Temperature - - Respiratory Rate - - Oxygen Saturation 93% 05/31/2024 3:36 PM CDT Inhaled Oxygen Concentration - - Weight 133.2 kg (293 lb 11.2 oz) 05/31/2024 3:36 PM CDT Height 172.7 cm (5' 8 ) 05/31/2024 3:36 PM CDT Body Mass Index 44.66 05/31/2024 3:36 PM CDT Plan of Treatment Not on file Insurance [facility] [facility] Care Teams Coffee Farmer Relationship Specialty Start Date End Date Rajiv Burgess MD [address] [address] PCP - General Family Medicine 04/01/23
--- OUTSIDE RECORDS SUMMARY | 2024-12-07 09:52 | XMS_ITS | Clinical Summary ---
Author Organization [facility] Address [address] [place] [address]. [place], [place] [id number] [place] [address] Care Team Providers Care City Maintenance Manager Name Role Phone Unavailable Primary Care Provider Unavailabl e Social History Tobacco Use Types Packs/Day Years Used Date Smoking Tobacco: Never Assessed Sex and Gender Information Value Date Recorded Sex Assigned at Not on file Legal Sex Male 7:55 PM CDT Gender Identity Not on file Sexual Orientation Not on file Plan of Treatment Health Maintenance Due Date Last Done Comments Colorectal Cancer Screening Colonoscopy (10 Years) 1961 Annual Physical 1964 Hepatitis C 1979 DTaP, Tdap and Td Vaccines ( 1 - Tdap) 1980 Zoster Vaccines (1 of 2) 2011 COVID-19 Vaccine ( - 2023-2 5 season) 2024 Influenza Adult (#1) 2024 RSV Immunization or 60+ Years (1 - 1-dose 75+ series) 2036 Meningococcal B Vaccine Aged Out No l onger eligible based on patient's age to complete this topic Meningococcal Vaccine Aged Out No kenny saranya eligible based on patient's age to complete this topic Pneumococcal Vaccine: Pediat rics (0 to 5 Years) and At-Risk Patients (6 to 64 Years) Aged Out No longer eligible b ased on patient's age to complete this topic RSV Immunizations Under 20 Months Aged Out No longer eligible based on patient's age to complete this topic
--- OUTSIDE RECORDS SUMMARY | 2024-12-07 09:52 | XMS_ITS | Clinical Summary ---
Author Organization [facility] [place] [address] Address [address] [place] [address] Care Team Providers Care Manager Consumer Insights Name Role Phone Rajiv Burgess MD Primary Care Provider [phone] Allergies Active Allergy Reactions Criticality Noted Date [...] 5 mg tabletIndicatio ns:Coronary artery disease involving [place] coronary artery of [place] heart without angina pectoris TAKE 2 TABLETS(10 MG) BY MOUTH DAILY 180 tablet 03/18/2024 Active atorvastatin (LIPITOR) 80 mg tablet TAKE 1 TABLET(80 MG) BY MOUTH DAILY 90 tablet 2 09/19/2024 Active Active Problems Problem Noted Date Diagnosed Date History of coronary angioplasty with insertion o f stent 05/28/2023 Morbid (severe) obesity due to excess calories 0 04/01/2023 Body mass index 40.0-44.9, adult ([facility]) 04/01 Social History Tobacco Use Types Packs/Day [...] on file 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 Gender Identity Not on file Sexual Orientation Not on file Obstetrics History Last Filed Vital Signs Vital Sign Reading [...] 05/31/2024 3:36 PM CDT Plan of Treatment Health Maintenance Due Date Last Done Comments Colon Cancer Screening-Colonoscopy 1961 Depression Screening 1961 Hepatitis C Screening 1961 Prostate Cancer Screening-PSA 1961 DTaP/Tdap/Td Vaccine (1 - Tdap) 1972 Hepatitis B Screening 1979 Regular Well Visit/Exam 18-64 1979 Zoster Vaccine (1 of 2) 2011 Covid-19 Vaccine (4 - 2023-2 5 season) 2024 11/04/2021, 03/12/2021, 02/19/2021 Influenza Vaccine (#1) 2024 Pneumococcal vaccine <65 Aged Out No longer eligible based on patient's age to complete this topic Insurance [facility] Care Teams Manager Consumer Insights Relationship Specialty Start Date End Date Rajiv Burgess MD [address] [place] [address] PCP - General Family Medicine 04/01/23
--- OUTSIDE RECORDS SUMMARY | 2024-12-07 09:52 | XMS_ITS | Continuity of Care Document ---
Author Organization [facility] Address [address] [place] [address] [address] [place] [address] Phone Care Team Providers Care Cold Header Name Role Phone Terry OD, Nilesh Unavailable Unavailable Procedures Procedure Date Office/outpatient Visit, [facility] Advance Directives Directive Yes / No Effective Date File Name No Information Encounters Encounter Description Practice Location Reason(s) For Visit Diagnoses Date Provider Providers Copied on Encounter Office/outpat ient Visit, [facility], [address] [place] [address] [address], [place], [place], [id number], [place] tel:[phone] SEC [facility] No Information [phone] Terry OD Nilesh. [address] , [address], [place], [address], [place]. tel:[phone] Referring Provider: Rajiv Burgess MD, [address] [place] [address], [address]. tel:[phone] Family History Family Member Type Diagnosis Age At Onset No Information Payers Payer name Insurance type Covered republican ID Authoriza tion(s) No Information Social History Type Description Quantity Date Captured Comments Sex Male Smoking Status No Information Chief Complaint And Reason For Visit No Information Reason For Referral Reason For Referral No Information History Of Present Illness Encounter Date Complaint History Of Prese nt Illness No Information Functional Status Date Functional Assessmen t No Information Instructions Date Instruction Additional Infor mation No Information Assessments Type Assessment Date No Information Patient Care Teams Name Effective Dates (start - stop) Status Members No Information
--- NOTE | 2024-12-19 12:21 | P.SLEEP_ITS ---
Sleep Study Date of Study: 12/07/24 Ordering Provider: Rajiv Burgess MD Interpreting Physician: Janiya Guy DO Sleep Study Type: Split Polysomnogram Height: 1.75 m Weight: 131.542 kg Body Mass Index: 42.8 Neck Circumference (inches): 23 [place]: 19 Reason for Sleep Study Daytime hypersomnia Sleep History The patient is a 64-year-old male that had a sleep study ordered by his primary care physician for evaluation of sleep apnea. The patient occasionally awakens at night with heartburn, belching or cough. He rarely snores and is rarely loud enough that others complain. He rarely has trouble sleeping when he has a cold. He denies waking up gasping for air throughout the night. He denies having breathing problems at night observed by himself or others. He denies sweating excessively at night. He denies having heart palpitations or irregular heartbeats during the night. He frequently falls asleep during the day but never while driving. He denies sleep paralysis, cataplexy and hypnagogic/ hypnopompic hallucinations. He occasionally has trouble at school or work due to sleepiness. He denies feeling afraid of going to sleep. He denies having nightmares. He denies remembering his dreams. He occasionally has thoughts racing through his mind. He occasionally feels sad, depressed and anxious. He denies having muscular tension. He denies noticing parts of his body jerk. He denies kicking during the night. He occasionally has crawling and aching feelings in his legs and occasionally has leg pain during the night. He denies grinding his teeth during sleep and denies awakening with morning jaw pain. He denies being bothered by pain during the day and occasionally awakened by pain during the night. He denies waking up feeling stiff in the morning. He denies waking up with sore or achy muscles. He occasionally wakes up with pain in the neck, spine or other joints. He goes to bed at 7:00 p.m. on weekdays but does not have a set bedtime on the weekends. He is able to fall asleep immediately. He wakes up several times throughout the night to urinate is able to fall back asleep immediately. He wakes up at 2:00 a.m. on weekdays and is wake up time on the weekend is variable. He typically gets 6 hours of sleep per night. He will spend 10 minutes in bed after waking up in the morning. He currently lives with his . He denies consuming any caffeinated beverages within 2 hours of bedtime. He denies engaging in physical exercise before bedtime. He will watch television before falling asleep. He will take naps in afternoon or the evening and they are refreshing. He consumes 1 caffeinated beverage per day. He denies tobacco, alcohol and recreational drug use. [facility] Past Medical History Medical History Morbid obesity with BMI of 45.0-49.9, adult Polycythemia hemoglobin 18.6 on 09/16/2024. Peripheral arterial disease (~10/07/23) arterial Doppler of the lower extremities reveal ORACIO normal at 1.12 on the right and 1.08 on the left with TBI decreased on the right at 0.41 with luz elena l greater than 0.6 and more severe on the right with TBI 0.08. Screening for diabetic retinopathy no diabetic retinopathy on 09/24/2023. No retinopathy 09/26/2024. Insomnia Decreased pulses in feet (~09/09/23) DM2 (diabetes mellitus, type 2) Chest pain Fungal nail infection (~08/20/22) 1st and 5th toes bilaterally Morbid obesity with BMI of 40.0-44.9, adult Rib pain on left side Elevated liver enzymes AST 46, ALT 56 on 03/09/2023. Enzymes normal on 09/03/2023 with AST 20 and ALT 22. Encounter for prostate cancer screening PSA 0.57 on 07/05/2021. PSA 0.7 on 08/18/2022. PSA 0.5 on 09/03/2023. PSA 0.6 on 09/16/2024. Foreign body in right ear Cough BPH without obstruction/lower urinary tract symptoms Male erectile dysfunction, unspecified Essential (primary) hypertension Mixed hyperlipidemia total cholesterol 204, triglycerides 418 and HDL 27 on 07/05/2021. Total cholesterol 194, triglycerides 332, HDL 32, LDL 105 on 08/18/2022. cholesterol 208, triglycerides 319, HDL 38, LDL 115 on 02/16/2023. Total cholesterol 208, triglycerides 206, HDL 25, LDL 115 on 03/09/2023. cholesterol 120, triglycerides 183, HDL 34, LDL 61 on 09/03/2023. Cholesterol 98, triglycerides 148, HDL 28, LDL 44 on 03/14/2024. Cholesterol 231, triglycerides 349, HDL 34, LDL 134 on 09/16/2024. Obstructive sleep apnea No longer uses a CPAP he has had his tonsillectomy and uvulectomy Colon polyp (09/20/19) Multiple polyps on colonoscopy with Dr. Larsen on 09/20/2019 with recheck in 3 years. Repeat colonoscopy 10/01/2022 with 2 polyps with recheck in 3 years. Surgical History Surgical History H/O colonoscopy with polypectomy H/O uvulectomy History of tonsillectomy Family History Family History Sibling No problems noted. Sibling COPD (chronic obstructive pulmonary disease) Aneurysm Social History Social History Social History: He has 2 sons and lives with . 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 He rarely has a drink of alcohol and is a social drinker. His is the durable power transactional attorney for healthcare Code status full code Smoking packs per day: 3 Smoking cigarettes per day: 60.0 Years smoked: 20 Smoking pack-years: 60.00 Smoking status: Former smoker Tobacco type: cigarettes Second hand tobacco smoke exposure: Yes Alcohol intake: current Drinks per week: 2 Alcohol use details: occasional Substance use: never Substance use type: marijuana Lack of Transportation: No Lack of Food: Never True Current Housing: I Have Housing Concerned About Future Housing: No Difficulty Paying Gas/Electric Bills: No Difficulty Paying for Meds: No Currently Unemployed: No Education: High School Diploma/GED Difficulty w/ Childcare or Family Care: No Living arrangements: with family Gender identity (if verbalized by the patient): Male Spiritual care concerns: No Medications Home Medications ?Medication ?Instructions ?Recorded ?Confirmed ?Type cyanocobalamin (vitamin B-12) 1,000 mcg PO DAILY 06/26/22 11/07/24 History 1,000 mcg tablet cholecalciferol (vitamin D3) 50 2,000 unit PO DAILY 08/20/22 11/07/24 History mcg (2,000 unit) capsule aspirin 81 mg chewable tablet 81 mg PO DAILY@0800 #30 tabs 03/10/23 11/07/24 Rx (Children's Aspirin) amlodipine 5 mg tablet 5 mg PO DAILY #90 tabs 09/09/23 11/07/24 Rx atorvastatin 80 mg tablet 80 mg PO DAILY #90 tabs 09/09/23 11/07/24 Rx azelastine 137 mcg (0.1 %) nasal 1 spray intranasal Q12H PRN 03/17/24 11/07/24 Rx spray allergy #30 mL fluticasone propionate 50 1 spray intranasal BID #16 grams 03/17/24 11/07/24 Rx mcg/actuation nasal spray,suspension (Flonase Allergy Relief) metformin 500 mg tablet,extended 1,000 mg (2 x 500 mg) PO BID #360 04/29/24 11/07/24 Rx release 24hr (osmotic) tabs metoprolol tartrate 50 mg tablet 50 mg PO Q12H #60 tabs 06/13/24 11/07/24 Rx tamsulosin 0.4 mg capsule 0.4 mg PO DAILY #90 caps 07/28/24 11/07/24 Rx valsartan 320 mg tablet 320 mg PO DAILY #90 tabs 07/28/24 11/07/24 Rx clopidogrel 75 mg tablet 75 mg PO DAILY #90 tabs 09/19/24 11/07/24 Rx semaglutide 14 mg tablet (Rybelsus) 14 mg PO DAILY #90 tabs 09/21/24 11/07/24 Rx dapagliflozin propanediol 10 mg 10 mg PO QAM #90 tabs 09/26/24 11/07/24 Rx tablet (Farxiga) ezetimibe 10 mg tablet (Zetia) 10 mg PO DAILY #90 tabs 10/05/24 11/07/24 Rx glimepiride 2 mg tablet 2 mg PO QAM #90 tabs 11/07/24 11/07/24 Rx Sleep Procedure A full night split study using the [employer] [facility] multi-channel system recorded the standard physiologic parameters including EEG, EOG, submentalis EMG, anterior tibialis EMG, EKG, body position, nasal and oral airflow using nasal pressure sensor and thermistor.? Respiratory parameters of chest and abdominal movements were recorded with Respiratory Inductance Plethysmography belts. Oxygen saturation was recorded by pulse oximetry. Video monitoring was also performed. Sleep stages, periodic limb movements, and EEG arousals were scored in 30 second epochs according to the criteria of the AASM Scoring Manual. The Apnea-Hypopnea Index was calculated using [facility] guidelines for definition of hypopnea with 4% O2 desaturations while scoring respiratory events. Sleep Architecture During the diagnostic portion of the study, the total recording time was 307.9 minutes. The total sleep time was 172.0 minutes. Sleep latency was 0.4 minutes.? REM sleep was not achieved during this portion of the study. Sleep Efficiency was 55.9%. The patient had 113 awakenings for an awakening index of 39.4. Wake after sleep onset time was 135.5 minutes. The patient spent 146.0 minutes, 84.9% of total sleep time in Stage N1. The patient spent 26.0 minutes, 15.1% in Stage N2. The patient spent 0.0 minutes, 0.0% in Stage N3. The patient spent 0.0 minutes, 0.0% in Stage REM sleep. At 02:09:03 AM the patient was placed on PAP treatment and was titrated at pressures ranging from 5 cm H20 with supplemental oxygen at up to 23/13 cm H20. During the treatment portion of the study, the total recording time was 246.1 minutes.? The total sleep time was 190.0 minutes. Sleep latency was 6.0 minutes. REM latency was 9.0 minutes. Sleep Efficiency was 77.2%. Wake after Sleep Onset time was 50.5 minutes. The patient spent 28.0 minutes, 14.7% of total sleep time in Stage N1. The patient spent 114.0 minutes, 60.0% in Stage N2. The patient spent 0.0 minutes, 0.0% in Stage N3. The patient spent 48.0 minutes, 25.3% in Stage REM. Respiratory Analysis During the diagnostic portion of the study, the patient had 97 hypopneas, 83 obstructive apneas, 148 mixed apneas, and 7 central apneas for an overall Apnea Hypopnea Index of 116.9 events per hour. The REM Apnea Hypopnea Index was 0. The NREM Apnea Hypopnea Index was 116.9. The patient had a Central Apnea Hypopnea Index of 2.4. There was no evidence of Wander-Covarrubias Respirations. During the treatment portion of the study, the patient had 99 hypopneas, 25 obstructive apneas, 34 mixed apneas, and 30 central apneas for an overall Apnea Hypopnea Index of 59.4 events per hour. The REM Apnea Hypopnea Index was 30.0. The NREM Apnea Hypopnea Index was 69.3. The patient had a Central Apnea Hypopnea Index of 9.5. There was no evidence of Wander-Covarrubias Respirations. The patient was started on CPAP 5 cm H2O and titrated to BPAP 23/13 cm H2O. The patient was able to fall asleep starting on CPAP 5 cm H2O. The patient was able to achieve REM sleep during on CPAP 7 cm H2O. The patient was titrated to 13 cm H2O before being switched to BPAP 13/7 cm H2O due to low oxygen saturation. When the patient was titrated to BPAP 17/7 cm H2O, he developed a significant number of ventral/mixed apneas. The pressure was gradually increased further but the patient still had hypopneas. There was no optimal pressure setting found during this study. Arousals During the diagnostic portion of the study, there were a total of 312 arousals for an arousal index of 108.8.? There were 235 respiratory arousals for an index of 82.0. There were 0 periodic limb movement arousals for an index of 0.? There were 16 isolated limb movement arousals for an index of 5.6. There were 61 spontaneous arousals for an index of 21.3. During the treatment portion of the study, there were a total of 100 arousals for an index of 31.6.? There were 61 respiratory arousals for an index of 19.3. There were 3 periodic limb movement arousals for an index of 0.9.? There were 4 isolated limb movement arousals for an index of 1.3. There were 32 spontaneous arousals for an index of 10.1. Periodic Limb Movements During the diagnostic portion of the study, the patient had 22 isolated limb movements with an index of 7.7. The patient had 0 periodic limb movements with an index of 0. The patient had a total of 22 limb movements with a total limb movement index of 7.7. During the treatment portion of the study, the patient had 29 isolated limb movements with an index of 9.2. The patient had 38 periodic limb movements with an index of 12.0. The patient had a total of 67 limb movements with a total limb movement index of 21.2. Oximetry Data During the diagnostic portion of the study, the patient had an average oxygen saturation of 84.8% in wake with a minimum oxygen saturation of 74% and a maximum oxygen saturation of 92%. The patient had an average oxygen saturation of 84.3% in sleep with a minimum oxygen saturation of 74.0% and a maximum oxygen saturation of 92.0%. The patient had 349 oxygen desaturations resulting in an Oxygen Desaturation Index of 121.7. The patient spent 269.6 minutes, 87.7% of total sleep time with an oxygen saturation less than 88%. During the treatment portion of the study, the patient had an average oxygen saturation of 86.1% in wake with a minimum oxygen saturation of 72.0% and a maximum oxygen saturation of 93.0%. The patient had an average oxygen saturation of 83.8% in sleep with a minimum oxygen saturation of 69.0% and a maximum oxygen saturation of 93.0%. The patient had 316 oxygen desaturations resulting in an Oxygen Desaturation Index of 99.8. The patient spent 207.5 minutes, 89.4% of total sleep time with an oxygen saturation less than 88%. Snoring Profile Mild to moderate snoring was present during the baseline portion of the study. The snoring resolved once the patient was titrated to 19/9 cm H2O. Cardiac Profile The EKG lead showed normal sinus rhythm. No arrhythmias or premature beats were seen. During the diagnostic portion of the study, the average pulse rate was 62.8 bpm.? The minimum pulse rate was 48.0 bpm. The maximum pulse rate was 85.0 bpm. During the treatment portion of the study, the average pulse rate was 65.3 bpm.? The minimum pulse rate was 44.0 bpm. The maximum pulse was 82.0 bpm. EEG Profile No signs of seizure activity seen. Assessment and Plan Assessment and Plan (1) Obstructive sleep apnea: Code(s): G47.33 - Obstructive sleep apnea (adult) (pediatric) Status: Acute Assessment and Plan: In the baseline portion of the study, the patient had an overall AHI of 116.9 with desaturation down to 74%. This is consistent with severe sleep apnea. The patient spent over 4 hours of the baseline portion of the study with an oxygen saturation below 88%. The patient was started on CPAP 5 cm H2O and titrated to BPAP 23/13 cm H2O. No optimal pressure setting was found during this study. Supplemental oxygen was unable to be added during the study because the hypoxemia was associated with persistent respiratory events. The patient will benefit from having a full night CPAP Titration with the use of a hypnotic (Lunesta 2-3 mg or Ambien 5-10 mg) to ensure we obtain enough sleep data and find an optimal pressure setting. The patient had a baseline oxygen saturation of 87% in the very beginning of the sleep study. The patient was noted to have an oxygen saturation of 94% at his l ast visit with his primary care physician. The low baseline oxygen saturation at the beginning of the study as well as the amount of time he spent with an oxygen saturation less than 88% is very concerning for an underlying pulmonary disease process especially given his smoking history. I recommend that the patient have a two view chest x-ray, complete PFT and 6 minute walk test for further evaluation. Given history of tobacco use and pulmonary nodules, may consider high resolution chest CT or CT chest without contrast instead of chest Xray. Data The data obtained during this sleep study is adequate for interpretation. Certification This sleep study has been reviewed by a board certified sleep medicine physician.
[2024-12-20 14:14] VITALS: BMI 42.8
== END 2024-12-08 06:38 | disposition home or self-care (01) ==
LOC: ANHCSM 09:19
PROVIDERS: PCP Family Medicine; Visit Provider Family Medicine
DX: G47.33 Obstructive sleep apnea (adult) (pediatric) (principal); G47.10 Hypersomnia, unspecified
CPT/HCPCS: 95811

== ENCOUNTER 2025-04-17 14:31 | Emergency (ER) | payer OTHER, BC, SELFPAY ==
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
[2025-04-17 14:33] VITALS: BP 149/67; PULSE 98; RESP 16; TEMP 36.4; O2SAT 94
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
--- OUTSIDE RECORDS SUMMARY | 2025-04-17 15:40 | XMS_ITS | Referral Summary ---
Author Organization [facility] [address] Address [address] [place] [address] Care Team Providers Care Procurement Representative Name Role Phone Rajiv Burgess MD Primary Care Provider [phone] [phone] Allergies Active Allergy Reactions Criticality Noted Date [...] capsule 1 capsule (2,000 Units total) Active atorvastatin (LIPITOR) 80 mg tablet TAKE 1 TABLET(80 MG) BY MOUTH DAILY 90 tablet 2 09/19/2024 Active amLODIPine (NORVASC) 5 mg tabletIndicatio ns:Coronary artery disease involving [place] coronary artery of [place] heart without angina pectoris Take 2 tablets by mouth once daily 150 tablet 03/06/2025 Active Active Problems Problem Noted Date Diagnosed Date History of coronary angioplasty with insertion o f stent 05/28/2023 Morbid (severe) obesity due to excess calories 0 04/01/2023 Body mass index 40.0-44.9, adult ([facility]) 04/01 Social History Tobacco Use Types [...] on file 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
--- OUTSIDE RECORDS SUMMARY | 2025-04-17 15:40 | XMS_ITS | Continuity of Care Document ---
Author Organization [facility] Address [address] [place] [address] [address] [place] [address] Phone Care Team Providers Care Outside Property Agent Name Role Phone Terry OD, Nilesh Unavailable Unavailable Procedures Procedure Date Office/outpatient Visit, [facility] Advance Directives Directive Yes / No Effective Date File Name No Information Encounters Encounter Description Practice Location Reason(s) For Visit Diagnoses Date Provider Providers Copied on Encounter Office/outpat ient Visit, [facility], [address] [place] [address] [address], [place], [place], [id number], [place] tel:[phone] SEC [facility] No Information 8-201 0 Terry OD Nilesh. [address] , [address], [place], [address], [place]. tel:[phone] Referring Provider: Rajiv Burgess MD, [address] [place] [address], [address]. tel:[phone] Family History Family Member Type Diagnosis Age At Onset No Information Payers Payer name Insurance type Covered alliance party ID Authoriza tion(s) No Information Social History [...]
--- OUTSIDE RECORDS SUMMARY | 2025-04-17 15:40 | XMS_ITS | Clinical Summary ---
Author Organization [facility] [address] Address [address] [place] [address] Care Team Providers Care Dural Mechanic Name Role Phone Rajiv Burgess MD Primary Care Provider [phone] [phone] Allergies Active Allergy Reactions Criticality Noted Date [...] 5 mg tabletIndicatio ns:Coronary artery disease involving [place] coronary artery of [place] heart without angina pectoris Take 2 tablets by mouth once daily 150 tablet 03/06/2025 Active Active Problems Problem Noted Date Diagnosed Date History of coronary angioplasty with insertion o f stent 05/28/2023 Morbid (severe) obesity due to excess calories 0 04/01/2023 Body mass index 40.0-44.9, adult ([facility]) 04/01 Social History Tobacco Use Types Packs/Day [...] on file 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
--- OUTSIDE RECORDS SUMMARY | 2025-04-17 16:02 | XMS_ITS | Clinical Summary ---
Author Organization [facility] [address] Address [address] [place] [address] Care Team Providers Care Foreign Trade Teacher Name Role Phone Rajiv Burgess MD Primary Care Provider [phone] Allergies Active Allergy Reactions Criticality Noted Date [...] 5 mg tabletIndicatio ns:Coronary artery disease involving [place] coronary artery of [place] heart without angina pectoris Take 2 tablets by mouth once daily 150 tablet 03/06/2025 Active Active Problems Problem Noted Date Diagnosed Date History of coronary angioplasty with insertion o f stent 05/28/2023 Morbid (severe) obesity due to excess calories 0 04/01/2023 Body mass index 40.0-44.9, adult ([facility]) 04/01 Social History Tobacco Use [...] on file 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
--- OUTSIDE RECORDS SUMMARY | 2025-04-17 16:02 | XMS_ITS | Referral Summary ---
Author Organization [facility] [address] Address [address] [place] [address] Care Team Providers Care Basting Cleaner Name Role Phone Rajiv Burgess MD Primary Care Provider [phone] Allergies Active Allergy Reactions Criticality Noted Date [...] 5 mg tabletIndicatio ns:Coronary artery disease involving [place] coronary artery of [place] heart without angina pectoris Take 2 tablets by mouth once daily 150 tablet 03/06/2025 Active Active Problems Problem Noted Date Diagnosed Date History of coronary angioplasty with insertion o f stent 05/28/2023 Morbid (severe) obesity due to excess calories 0 04/01/2023 Body mass index 40.0-44.9, adult ([facility]) 04/01 Social History Tobacco Use Types [...] on file 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
--- OUTSIDE RECORDS SUMMARY | 2025-04-17 16:02 | XMS_ITS | Continuity of Care Document ---
Author Organization [facility] Address [address] [place] [address] [address] [place] [address] Phone Care Team Providers Care Senior Investment Analyst Name Role Phone Terry OD, Nilesh Unavailable Unavailable Procedures Procedure Date Office/outpatient Visit, [facility] Advance Directives Directive Yes / No Effective Date File Name No Information Encounters Encounter Description Practice Location Reason(s) For Visit Diagnoses Date Provider Providers Copied on Encounter Office/outpat ient Visit, [facility], [address] [place] [address] [address], [place], [place], [id number], [place] tel:[phone] SEC [facility] No Information 8-201 0 Terry OD Nilesh. [address] , [address], [place], [address], [place]. tel:[phone] Referring Provider: Rajiv Burgess MD, [address] [place] [address], [address]. tel:[phone] Family History Family Member Type Diagnosis Age At Onset No Information Payers Payer name Insurance type Covered constitution party ID Authoriza tion(s) No Information Social [...]
[2025-04-17 16:58] VITALS: BP 121/69; PULSE 88; RESP 18; TEMP 36.7; O2SAT 94
== END 2025-04-17 17:01 | disposition home or self-care (01) ==
PROVIDERS: Emergency Provider General Practice; PCP Family Medicine
DX: S16.1XXA Strain of muscle, fascia and tendon at neck level, initial encounter (principal); I10 Essential (primary) hypertension; E11.51 Type 2 diabetes mellitus with diabetic peripheral angiopathy without gangrene; I73.9 Peripheral vascular disease, unspecified; E66.01 Morbid (severe) obesity due to excess calories; Z68.42 Body mass index [BMI] 45.0-49.9, adult; E78.2 Mixed hyperlipidemia; N40.0 Benign prostatic hyperplasia without lower urinary tract symptoms; G47.33 Obstructive sleep apnea (adult) (pediatric); Z86.0100 Personal history of colon polyps, unspecified; Z87.891 Personal history of nicotine dependence; Z79.84 Long term (current) use of oral hypoglycemic drugs; Z79.82 Long term (current) use of aspirin; Z79.02 Long term (current) use of antithrombotics/antiplatelets; Z79.899 Other long term (current) drug therapy; V63.5XXA Driver of heavy transport vehicle injured in collision with car, pick-up truck or van in traffic accident, initial encounter
CPT/HCPCS: 70450; 72125; 99284

== ENCOUNTER 2025-05-15 08:43 | Outpatient (CLI) | payer BC, SELFPAY ==
--- OUTSIDE RECORDS SUMMARY | 2025-05-15 09:04 | XMS_ITS | Referral Summary ---
Author Organization [facility] [address] Address [address] [place] [address] Care Team Providers Care Camp Dining Room Attendant Name Role Phone Rajiv Burgess MD Primary Care Provider [phone] [phone] Allergies Active Allergy Reactions Criticality Noted Date [...] 5 mg tabletIndicatio ns:Coronary artery disease involving [place] coronary artery of [place] heart without angina pectoris Take 2 tablets by mouth once daily 150 tablet 03/06/2025 Active Active Problems Problem Noted Date Diagnosed Date History of coronary angioplasty with insertion o f stent 05/28/2023 Morbid (severe) obesity due to excess calories 0 04/01/2023 Body mass index 40.0-44.9, adult ([facility]) 04/01 Social History Tobacco [...] on file 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
--- OUTSIDE RECORDS SUMMARY | 2025-05-15 09:04 | XMS_ITS | Clinical Summary ---
Author Organization [facility] [address] Address [address] [place] [address] Care Team Providers Care Supervisor Fur Floor Worker Name Role Phone Rajiv Burgess MD Primary Care Provider [phone] [phone] Allergies Active Allergy Reactions Criticality Noted Date [...] 5 mg tabletIndicatio ns:Coronary artery disease involving [place] coronary artery of [place] heart without angina pectoris Take 2 tablets by mouth once daily 150 tablet 03/06/2025 Active Active Problems Problem Noted Date Diagnosed Date History of coronary angioplasty with insertion o f stent 05/28/2023 Morbid (severe) obesity due to excess calories 0 04/01/2023 Body mass index 40.0-44.9, adult ([facility]) 04/01 Social History Tobacco Use Types Packs/Day [...] on file 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
--- NOTE | 2025-05-15 09:29 | ECG_ITS ---
Test Date: 2025-05-15 09:36:56 Measurements Intervals [place] Rate: 78 P: 75 GA: 234 QRS: 64 QRSD: 80 T: 39 QT: 359 QTc: 410 Interpretive Statements SINUS RHYTHM WITH FIRST DEGREE AV BLOCK LOW QRS VOLTAGE IN PRECORDIAL LEADS [QRS DEFLECTION < 1.0 mV IN CHEST LEADS] No previous ECG available for comparison Electronically Signed On 05-15-2025 22:19:28 CDT by oYusif Villagomez M.D.
== END 2025-05-15 08:44 | disposition home or self-care (01) ==
PROVIDERS: PCP Family Medicine; Visit Provider Family Medicine
DX: I25.10 Atherosclerotic heart disease of native coronary artery without angina pectoris (principal); I44.0 Atrioventricular block, first degree
CPT/HCPCS: 93005

== ENCOUNTER 2025-05-23 08:14 | Outpatient (CLI) | payer BC, SELFPAY ==
--- OUTSIDE RECORDS SUMMARY | 2025-05-23 08:22 | XMS_ITS | Continuity of Care Document ---
Author Organization [facility] Address [address] [place] [address] [address] [place] [address] Phone Care Team Providers Care Refrigeration Mechanic Helper Name Role Phone Terry OD, Nilesh Unavailable Unavailable Procedures Procedure Date Office/outpatient Visit, [facility] Advance Directives Directive Yes / No Effective Date File Name No Information Encounters Encounter Description Practice Location Reason(s) For Visit Diagnoses Date Provider Providers Copied on Encounter Office/outpat ient Visit, [facility], [address] [place] [address] [address], [place], [place], [id number], [place] tel:[phone] SEC [facility] No Information 8-201 0 Terry OD Nilesh. [address] , [address], [place], [address], [place]. tel:[phone] Referring Provider: Rajiv Burgess MD, [address] [place] [address], [address]. tel:[phone] Family History Family Member Type Diagnosis Age [...]
--- OUTSIDE RECORDS SUMMARY | 2025-05-23 08:22 | XMS_ITS | Referral Summary ---
Author Organization [facility] [place] [address] Address [address] [place] [address] Care Team Providers Care Local Combination Truck Driver Name Role Phone Rajiv Burgess MD Primary Care Provider [phone] [phone] Allergies Active Allergy Reactions Criticality Noted Date [...] 5 mg tabletIndicatio ns:Coronary artery disease involving teller coronary artery of teller heart without angina pectoris Take 2 tablets by mouth once daily 150 tablet 03/06/2025 Active Active Problems Problem Noted Date Diagnosed Date History of coronary angioplasty with insertion o f stent 05/28/2023 Morbid (severe) obesity due to excess calories 0 04/01/2023 Body mass index 40.0-44.9, adult ([facility]) 04/01 Social History Tobacco Use Types Packs/Day [...] on file 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
--- OUTSIDE RECORDS SUMMARY | 2025-05-23 08:22 | XMS_ITS | Clinical Summary ---
Author Organization [facility] [address] Address [address] [place] [address] Care Team Providers Care College Admissions Counselor Name Role Phone Rajiv Burgess MD Primary Care Provider [phone] [phone] Allergies Active Allergy Reactions Criticality Noted Date [...] 5 mg tabletIndicatio ns:Coronary artery disease involving enterprise coronary artery of enterprise heart without angina pectoris Take 2 tablets by mouth once daily 150 tablet 03/06/2025 Active Active Problems Problem Noted Date Diagnosed Date History of coronary angioplasty with insertion o f stent 05/28/2023 Morbid (severe) obesity due to excess calories 0 04/01/2023 Body mass index 40.0-44.9, adult ([facility]) 04/01 Social History Tobacco Use [...] on file 

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
[2025-06-18 19:22] VITALS: BMI 44.1
== END 2025-05-24 06:21 | disposition home or self-care (01) ==
LOC: ANHCSM 08:15
PROVIDERS: PCP Family Medicine; Visit Provider Physician Assistant
DX: G47.33 Obstructive sleep apnea (adult) (pediatric) (principal); I25.9 Chronic ischemic heart disease, unspecified; Z68.41 Body mass index [BMI] 40.0-44.9, adult
CPT/HCPCS: 95811

== ENCOUNTER 2025-09-13 08:10 | Day surgery (SDC) | payer BC, SELFPAY ==
[2025-09-13 07:54] VITALS: BMI 42.6
--- OUTSIDE RECORDS SUMMARY | 2025-09-13 08:19 | XMS_ITS | Clinical Summary ---
Author Organization [facility] [place] [address] Address [address] [place] [address] Care Team Providers Care Sports Centre Manager Name Role Phone Rajiv Burgess MD Primary Care Provider [phone] [phone] Allergies Active Allergy Reactions Criticality Noted Date [...] artery of [place] heart without angina pectoris Take 2 tablets by mouth once daily 180 tablet 3 07/31/2025 Active atorvastatin (LIPITOR) 80 mg tablet Take 1 tablet by mouth once daily 90 tablet 3 07/31/2025 Active Active Problems Problem Noted Date Diagnosed Date History of coronary angioplasty with insertion o f stent 05/28/2023 Morbid (severe) obesity due to excess calories 0 04/01/2023 Body mass index 40.0-44.9, adult ([facility] 04/01 Social History Tobacco Use Types [...] more drinks on one occasion? 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 Gender Identity Not on file Sexual Orientation Not on file Last Filed Vital Signs Vital Sign Reading Time Taken Comments Blood Pressure 108/58 06/01/2025 3:10 PM CDT Pulse 98 06/01/2025 3:10 PM CDT Temperature - - Respiratory Rate - - Oxygen Saturation 92% 06/01/2025 3:10 PM CDT Inhaled Oxygen Concentration - - Weight 129.4 kg (285 lb 3.2 oz) 06/01/2025 3:10 PM CDT Height 172.7 cm (5' 8) 06/01/2025 3:10 PM CDT Body Mass Index 43.36 06/01/2025 3:10 PM CDT Plan of Treatment Health Maintenance Due Date Last Done Comments Colon Cancer Screening-Colonoscopy 1961 Depression Screening 1961 Hepatitis C Screening 1961 Prostate Cancer Screening-PSA 1961 DTaP/Tdap/Td Vaccine (1 - Tdap) 1972 Hepatitis B Screening 1979 Regular Well Visit/Exam 18-64 1979 Zoster Vaccine (1 of 2) 2011 Covid-19 Vaccine (4 - 2024-2 6 season) 2025 11/04/2021, 03/12/2021, 02/19/2021 Influenza Vaccine (#1) 2025 Pneumococcal vaccine <65 Aged Out No longer eligible based on patient's age to complete this topic Insurance [facility] Care Teams Sports Centre Manager Relationship Specialty Start Date End Date Rajiv Burgess MD [address] [address] PCP - General Family Medicine 04/01/23
--- OUTSIDE RECORDS SUMMARY | 2025-09-13 08:19 | XMS_ITS | Clinical Summary ---
Author Organization [facility] Address [address] [place] [id number] Care Team Providers Care School Health Aide Name Role Phone Unavailable Primary Care Provider [...] Td Vaccines ( 1 - Tdap) 1980 Pneumococcal Vaccine: 50+ Ye ars (1 of 1 - PCV) 2011 Zoster Vaccines (1 of 2) 2011 COVID-19 Vaccine ( - 2024-2 6 season) 2025 Influenza Adult (#1) 2025 RSV Immunization or 60+ Years (1 - 1-dose 75+ series) 2036 Hepatitis A Vaccines Aged Out No long er eligible based on patient's age to complete this topic Meningococcal B Vaccine Aged Out No l onger eligible based on patient's age to complete this topic Meningococcal Vaccine Aged Out No kenny saranya eligible based on patient's age to complete this topic RSV Immunizations Under 20 Months Aged Out No longer eligible based on patient's age to complete this topic
[2025-09-13 09:37] VITALS: BP 127/78; PULSE 81; RESP 20; TEMP 36.2; O2SAT 96; BMI 45.8
[2025-09-13] MEDS: LACTATED RINGERS 1,000 ML 150 ML IV CONT (09:38)
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
--- NOTE | 2025-09-13 10:55 | S_PTH ---
PATIENT: Candelario Pires LOC: JEAN #:[id number] AGE/SX: 65/M ROOM: RE09/13/[address]: Pacheco Maynard MD : 1960 BED: DIS: 09/13/2025 SPEC #: [id number] RECD: 09/13/25 13:24 STATUS: LILLIAN REQ #: [id number] INDRA: 09/13/25 10:[address]: Pacheco Maynard DEPT: [facility] Surgical RECD BY: Geena Durham ENTERED: 09/13/25 13:24 SP TYPE: Surgical OTHR DR: Rajiv Burgess MD Tissues: A - Colon Polypectomy Procedures: Hematoxylin and Eosin Stain Gross and Microscopic Level 4
[2025-09-13 10:57] VITALS: BP 88/47; PULSE 71; RESP 25; O2SAT 97
[2025-09-13 11:07] VITALS: BP 129/83; PULSE 76; RESP 19; O2SAT 95
[2025-09-13 11:17] VITALS: BP 139/87; PULSE 73; RESP 16; O2SAT 97
== END 2025-09-13 11:25 | disposition home or self-care (01) ==
PROVIDERS: PCP Family Medicine; Referring Provider Family Medicine; Visit Provider Internal Medicine Gastroenterology
PROC: 0DJD8ZZ Inspection of Lower Intestinal Tract, Via Natural or Artificial Opening Endoscopic (ICD-10-PCS; CPT 45378; principal; 2025-09-13 14:30)
DX: Z12.11 Encounter for screening for malignant neoplasm of colon (principal); D12.3 Benign neoplasm of transverse colon; K64.8 Other hemorrhoids; I10 Essential (primary) hypertension; E78.2 Mixed hyperlipidemia; G47.33 Obstructive sleep apnea (adult) (pediatric); E11.9 Type 2 diabetes mellitus without complications; N40.0 Benign prostatic hyperplasia without lower urinary tract symptoms; N52.9 Male erectile dysfunction, unspecified; G89.29 Other chronic pain; M54.2 Cervicalgia; D75.1 Secondary polycythemia; I73.9 Peripheral vascular disease, unspecified; G47.00 Insomnia, unspecified; F12.90 Cannabis use, unspecified, uncomplicated; E66.01 Morbid (severe) obesity due to excess calories; Z68.42 Body mass index [BMI] 45.0-49.9, adult; Z79.82 Long term (current) use of aspirin; Z79.84 Long term (current) use of oral hypoglycemic drugs; Z79.02 Long term (current) use of antithrombotics/antiplatelets; Z79.85 Long-term (current) use of injectable non-insulin antidiabetic drugs; Z98.890 Other specified postprocedural states; Z87.891 Personal history of nicotine dependence
CPT/HCPCS: 45385; 82948; 88305; J2704; J7120